=== PATIENT | male | born 1975 | race Caucasian/White ===

== ENCOUNTER 2016-07-15 17:37 | Inpatient (IN) ==
[2016-07-15 18:46] LABS: BUN/Creatinine Ratio 10 (6-26); Blood Urea Nitrogen 8 mg/dL (8-26); Calcium 9.4 mg/dL (8.6-10.8); Carbon Dioxide 24 mEq/L (19-29); Chloride 100 mEq/L (98-109); Glucose 132 mg/dL (70-99); Osmolality,Calculated 286 (280-300); Potassium 4.2 mEq/L (3.5-4.5); Sodium 138 mEq/L (136-145); eGFR For African Americans > 60 (> 60); eGFR For Non-African Americans > 60 (> 60)
[2016-07-15] MEDS ORDERED: Aspirin 81 MG TAB.CHEW PO ONE (18:46)
[2016-07-15] MEDS: Nitroglycerin 0.4 MG TAB.SUBL SL PRN ×3 (18:51→19:03)
[2016-07-15] MEDS ORDERED: *HR* LORazepam 2 MG/ML VIAL IVP ONE ×3 (19:05→22:53)
--- NOTE | 2016-07-15 19:06 | Emergency Department Note ---
Disposition Clinical Impression: NSTEMI (non-ST elevated myocardial infarction), Anxiety Chest pain Qualifiers: Chest pain type: unspecified Qualified Code(s): R07.9 - Chest pain, unspecified Disposition: Admitted As Inpatient Condition: Fair Referrals: David Mendes MD [Primary Care Provider] - Forms: ED Satisfaction Letter Chest Pain HPI - General Chief Complaint: ED Chest Pain Stated Complaint: Chest Pain Time Seen by Provider: 07/15/16 18:07 Source: patient Limitations: no limitations Vital Signs Reviewed: Yes Nursing Notes Reviewed: Yes - History of Present Illness HPI Narrative: 41-year-old male with history of diabetes and heart disease presents with abrupt onset of retrosternal chest discomfort that began while he was having an argument with his 1 prior to arrival. It is associated with mild shortness of breath similar to prior anxiety exacerbations. Unfortunately, the patient also notes that it is similar to his NH. He denies any exertional symptoms, radiation of symptoms, diaphoresis, vomiting. He has not had any symptoms recently prior to the argument. Pt complaint: chest pain Severity scale (1-10): 9 - Related Data Home Medications Medication Instructions Recorded Confirmed Lamotrigine [Lamictal] 100 mg PO BID 11/29/14 03/06/16 Oxycodone HCl/Acetaminophen 1 each PO TID 11/29/14 03/06/16 [Percocet 5-325 mg Tablet] Tizanidine [Zanaflex] 4 mg PO TID PRN 11/29/14 03/06/16 Metformin HCl [Glucophage] 1,000 mg PO BIDWM 07/21/15 03/06/16 Pantoprazole Sodium [Protonix] 40 mg PO DAILY 07/21/15 03/06/16 Quetiapine Fumarate [Seroquel] 25 mg PO HS 07/21/15 03/06/16 Previous Rx's Medication Instructions Recorded Aspirin 81 mg PO DAILY #30 tab.chew 10/18/15 Atorvastatin [Lipitor] 80 mg PO HS #30 tablet 10/18/15 Metoprolol XL (24 HR) Succ [Toprol 100 mg PO DAILY #30 tab.er.24h 10/18/15 Xl] Clopidogrel [Plavix] 75 mg PO DAILY #30 tablet 10/23/15 Allergies Allergy/AdvReac Type Severity Reaction Status Date / Time cephalexin [From Keflex] Allergy Redness of Verified 10/23/15 07:20 Skin ketorolac [From Toradol] AdvReac Itching Verified 10/23/15 07:20 All systems ED: reviewed and negative except as stated. Chest Pain PMH - Past Medical History Medical history: Reports: asthma, coronary artery disease, diabetes, hypertension, migraine, myocardial infarction, other Surgical history: Reports: angioplasty/stent, appendectomy Psychiatric history: Reports: bipolar - Social History Smoking Status: Current every day smoker Alcohol use: Reports: none Drug use: Reports: none Physical Exam - Head Head exam: atraumatic, normocephalic, normal inspection - Eye Eye exam: Present: normal appearance, PERRL, EOMI - ENT ENT exam: normal exam, normal oropharynx, mucous membranes moist - Neck Neck exam: Present: normal inspection, full ROM, trachea midline - Chest Pain is not reproducible on palpation of the chest wall. - Respiratory Respiratory exam: Clear to auscultation bilaterally without wheezes rales or rhonchi Cardiovascular Cardiovascular exam: Present: regular rate, normal rhythm, normal heart sounds - Abdominal Exam Abdominal exam: Present: soft, Non-Tender. Absent: tenderness, distention, guarding, rebound, rigidity - Extremities Exam Extremities exam: Present: normal inspection, full ROM - Expanded Lower Extremity Exam Hip/Pelvis exam: Present: normal inspection, full ROM - Back Exam Back exam: Present: normal inspection, full ROM. Absent: tenderness, CVA tenderness (R), CVA tenderness (L) - Neurological Exam Neurological exam: Present: alert, oriented X3, CN II-XII intact - Psychiatric Psychiatric exam: Present: normal affect, normal mood - Skin Skin exam: Present: warm, dry, intact, normal color - General Limitations: no limitations General appearance: alert, anxious Course - Reevaluation(s) Reevaluation #1: Troponin is negative. Given the patient's abrupt onset of symptoms just prior to arrival I did recommend that he stay. He states that he feels this is likely his anxiety and would like to be treated for that. He says that he would not like to be admitted unless he is actually having a massive heart attack. I discussed this with oncoming physician Dr. Weeks who said that he would be willing to consider treating the anxiety and repeat troponin prior to disposition. We we will give the patient Ativan and reassess him. Initial EKG showed normal sinus rhythm at 95 with left axis deviation. No definite ST elevation or depression. No T-wave inversions there are prominent T waves in the precordial leads. These are changed when compared with 12/11/2015. Repeat EKG here shows normal sinus rhythm at 88. Again with prominent precordial T waves. No ST elevation or depression. Time: 19:11 - Consultations Consultation #1: The hospitalist, Dr. Kaba, was consulted and accepted admission of the patient. Time: 22:10 Vital Signs Temperature 97.6 F 07/15/16 17:39 Pulse Rate 99 07/15/16 17:39 Respiratory Rate 22 07/15/16 17:39 Blood Pressure 210/86 07/15/16 17:39 O2 Sat by Pulse Oximetry 97 07/15/16 17:39 Temperature 97.6 F 07/15/16 17:39 Pulse Rate 78 07/15/16 22:10 Respiratory Rate 20 07/15/16 22:10 Blood Pressure 162/93 07/15/16 22:10 O2 Sat by Pulse Oximetry 97 07/15/16 22:10 Oxygen Delivery Oxygen Delivery Room Air Chest Pain - Medical Records Medical records reviewed: Yes I reviewed the patient's medical records. - Lab Data Lab results reviewed: Yes I reviewed the patient's lab results. Result diagrams: 07/15/16 18:21 Lab Results 07/15/16 07/15/16 07/15/16 Range/Units 18:21 18:21 21:23 Sodium 138 (136-145) mEq/L Potassium 4.2 (3.5-4.5) mEq/L Chloride 100 (98-109) mEq/L Carbon Dioxide 24 (19-29) mEq/L BUN 8 (8-26) mg/dL Creatinine 0.79 (0.72-1.25) mg/dL Est GFR ( Amer) > 60 (> 60) Est GFR (Non-Af Amer) > 60 (> 60) BUN/Creatinine Ratio 10 (6-26) Glucose 132 H (70-99) mg/dL Calculated Osmolality 286 (280-300) Calcium 9.4 (8.6-10.8) mg/dL Troponin I 0.01 0.14 H* (0-0.03) ng/mL - Radiology Data Radiology results reviewed: Yes I reviewed the patient's radiology results. Chest X-Ray 07/15/16 18:07 IMPRESSION: No evidence for acute cardiopulmonary process. D/ / Monty Osborn MD / Monty Osborn MD Interpreting Provider: Monty Osborn MD - EKG Data EKG attestation: Yes I reviewed and interpreted this EKG. EKG results narrative: EKG shows a normal sinus rhythm with a heart rate of 88, possible anterior NH of indeterminate age, no acute ischemic changes. EKG shows normal: sinus rhythm Critical Care Time Critical Care Time: Yes Total Critical Care Time: 45 Attestation: Critical care performed: Time is exclusive of separately billable procedures. Time includes: direct patient care, patient reassessment, coordination of patient care, interpretation of data (laboratory data, radiology data, and respiratory data), review of patient's medical records, medical consultation and documentation of patient care. Procedures included in critical care time: Procedures excluded from critical care time: Attestation Statement - Attestation Attestation: I, Noe Weeks MD, personally evaluated this patient and discussed their management with the resident physician. I reviewed the resident's note and agree with the documented findings, medical decision making, and plan of care. This patient was signed out at shift change from Dr. Novak. Please refer to his note for complete details of history and physical examination. Patient is a 41-year-old morbidly obese male who presents complaining of some chest pain which started about an hour prior to arrival while he was having an argument with his . He states he has been under a lot of stress and pressure for the past 2 months and having marital problems and financial problems. Patient states that he has a history of anxiety and panic attacks and that this pressure and tightness through his mid chest and both upper arms feels similar to when he has panic attacks. However he also had an NH last October and had a stent placed and states this feels similar to the chest pain at that time also. No shortness of breath or palpitations. No diaphoresis. No nausea or vomiting. On examination patient is a well-developed morbidly obese male in no acute distress. He is alert and oriented 3. There is no cyanosis or diaphoresis. Does appear very anxious. Chest is nontender to palpation. Breath sounds are clear and equal bilaterally. Heart regular rate and rhythm. Abdomen soft and nontender with normal bowel sounds. EKG shows a sinus rhythm with a rate of 88. Possible anterior NH of indeterminate age. No STEMI. Labs reviewed. Initial troponin was 0.01 however a repeat troponin at 3 hours increased to 0.14. Chest x-ray negative. Patient did receive aspirin on arrival. He also received nitroglycerin with no improvement in his chest discomfort. He received Ativan which did seem to relieve his chest discomfort. The hospitalist, Dr. Kaba, was consulted and accepted admission of the patient.
[2016-07-15] MEDS ORDERED: Nitroglycerin 1 INCH/GM PACKET TP ONE (22:04)
[2016-07-15] MEDS ORDERED: *HR* Morphine 2 MG/ML SYRINGE IVP ONE ×2 (22:15→22:53)
[2016-07-16] MEDS ORDERED: *HR* Heparin 5,000 UNIT/ML VIAL IVP ONE (00:16)
[2016-07-16] MEDS ORDERED: *HR* Heparin 5,000 UNIT/ML VIAL IVP PRN ×2 (00:16)
[2016-07-16] MEDS ORDERED: Naloxone 0.4 MG/ML INJ IVP PRN (00:17)
[2016-07-16] MEDS ORDERED: tiZANidine 4 MG TABLET PO PRN (00:20)
[2016-07-16] MEDS ORDERED: Dextrose Gel 15 GM PO PRN ×2 (00:21)
[2016-07-16] MEDS ORDERED: *HR* Dextrose 50 % in Water (Syg) 50 ML SYRINGE IVP PRN (00:21)
[2016-07-16] MEDS ORDERED: D5% in Water 1,000 ML IVC PRN (00:21)
--- NOTE | 2016-07-16 00:24 | Internal Med History&Physical ---
Date of Encounter: 07/16/16 Time of Encounter: 00:22 Assessment and Plan (1) NSTEMI (non-ST elevated myocardial infarction) Current visit: Yes Status: Acute patient with significant risk factors for CAD and a history of CAD s/p ADRIANO placement in the mid LAD in 10/2015 for MSTEMI comes in with chest pain and elevated troponins preceded by 3 days of stuttering chest pain, we will cycle troponin, check lipi profile and A1c, telemonitor, start on heparin, drip per ACS protocol, stat aspirin, plavix, lipitor, continue metoprolol-unclear why he is not on an ADIEL-I- will continue nitro drip to titrate to chest pain, cardiology to weigh in, NPO except medications and ice chips (2) DM (diabetes mellitus), type 2 Current visit: Yes Status: Chronic Hx of type 2 DM on metformin at home, we will hold that due to possible contrast enhanced investigation and do SSI insulin, FS Q6H whilst fasting Qualifiers: Diabetes mellitus complication status: with neurologic complications Diabetes mellitus complication detail: with polyneuropathy Diabetes mellitus half-way insulin use: without half-way use Qualified Code(s): E11.42 - Type 2 diabetes mellitus with diabetic polyneuropathy (3) Morbid obesity with BMI of 50.0-59.9, adult Current visit: Yes Status: Chronic will need counseling, will get nutrition consult (4) Bipolar 1 disorder, manic, mild Current visit: Yes Status: Chronic will continue home medications (5) Hypertension Current visit: Yes Status: Chronic will continue metoprolol and monitor BP Qualifiers: Hypertension type: essential hypertension Qualified Code(s): I10 - Essential (primary) hypertension (6) Anxiety Current visit: Yes Status: Chronic will continue home medications Internal Medicine - H&P: HPI Chief complaint: Chest pain Admitted From: Emergency Dept Plans for Post Hospital Care: Home History of present illness: Mr. Evangelista is a 41 year old male with a history of DM/HTN/Morbid obesity/CAD s/ p ADRIANO placement in mid LAD in 10/2015 was brought in last night for chest pain. He was in his usual state of health until he began to have an argument with his . During this argument he started having chest pain that was retrosternal in location, was 9/10 in severity, radiated to his left arm and between his shoulder blades. It was constant since it began but over the past 3 days he has had intermittent chest pain those of which resolved with nitro. This pain that brought him in however did not respond to nitro. It was associated with lightheadedness, diaphoresis, nausea and vomiting, feeling of apprehension, dyspnea and dyspnea on exertion during the episode. In the ER his EKG was unchanged, his initial troponin was unremarkable but repeat troponin abut 3 hours later was elevated and he was still having chest pain so he is being admitted as NSTEMI for cardiology input. Past Med Surg Social Fam HX - Past Medical History Medical history: asthma, coronary artery disease, diabetes, hypertension, migraine, myocardial infarction, other Psychiatric history: anxiety, bipolar - Past Surgical History Surgical History: angioplasty/stent, appendectomy - Social History Smoking Status: Current every day smoker Packs per day: >1ppd for >23 years Smokeless Tobacco Status: No Alcohol use: none Drug use: none Current living situation: Home - Independent Activity Level: Independent ambulation Additional social history: he is and lives at home with - Family History Father Living Status: Still Living Hx Family Cardiac Disorders: Yes Hx Family Respiratory Disorders: No Hx Family Cancer: No Hx Family GI Disorders: No Hx Family Endocrine Disorder: Yes Hx Family Neuromuscular Disorders: No Hx Family Neurologic Disorders: No Hx Family HEENT Disorders: No Hx Family Autoimmune Disorders: No Mother Hx Family Cardiac Disorders: Yes (HTN, arrythmias.) Hx Family Endocrine Disorder: Yes (DM(II)) - Additional Family History Additional family history: father had an [place] in his late 30's, mother has heart failure, DM and reportedly has coronary stents Internal Medicine - H&P: Meds Lamotrigine [Lamictal] 100 mg PO BID 11/29/14 [History] Oxycodone HCl/Acetaminophen [Percocet 5-325 mg Tablet] 1 each PO TID 11/29/14 [ History] Tizanidine [Zanaflex] 4 mg PO TID PRN 11/29/14 [History] Metformin HCl [Glucophage] 1,000 mg PO BIDWM 07/21/15 [History] Aspirin 81 mg PO DAILY #30 tab.chew 10/18/15 [Rx] Clopidogrel [Plavix] 75 mg PO DAILY #30 tablet 10/23/15 [Rx] Atorvastatin Calcium [Lipitor] 80 mg PO HS 07/15/16 [History] Doxepin HCl [Doxepin HCl] 100 mg PO HS 07/15/16 [History] Metoprolol Succinate [Metoprolol Succinate] 100 mg PO DAILY 07/15/16 [History] OXcarbazepine [Oxcarbazepine] 300 mg PO BID 07/15/16 [History] Allergies cephalexin [From Keflex] Allergy (Verified 10/23/15 07:20) Redness of Skin ketorolac [From Toradol] Adverse Reaction (Verified 10/23/15 07:20) Itching All Systems PM: A 10-system review of systems was performed and is negative for pertinent findings except as documented above in the HPI. - Constitutional Vitals: Temp Pulse Resp BP Pulse Ox 98.1 F 62 16 157/96 95 07/15/16 23:42 07/15/16 23:42 07/15/16 23:42 07/15/16 23:42 07/15/16 23:42 PHYSICAL EXAMINATION: GENERAL: Adult male, obese looking, lying in bed looking uncomfortable and in pain, Alert, HEENT: NC/AT, EOMI, PERRLA, anicteric sclera, normal conjunctiva, supple, clear nares, moist mucous membranes, RESP: lungs are clear to auscultation bilaterally, good AE bilaterally, No crackles or wheeze CARDIO: Normal hearts sounds; S1 and 2, RRR with no murmurs, no JVD, no ankle edema GI: Soft, full, no tenderness, no organomegaly felt, normal bowel sounds heard MUSCULOSKELETAL: grossly normal movements bilaterally, NEUROLOGIC: CN 2-12 intact grossly. No motor/sensory deficit appreciated, PSYCHIATRY: AAO x 3. Mood is fair, SKIN: no skin rash or ulcers noted Internal Med - H&P Results - Labs CBC & Chem 7: 07/16/16 00:33 07/16/16 03:04 - EKG Data -: EKG Interpreted by Myself - Diagnostic Studies Chest x-ray Status: image reviewed by me
[2016-07-16] MEDS ORDERED: Nitroglycerin 25 MG/250 ML INFUS..BTL IVC SCH (00:30)
[2016-07-16 00:55] LABS: Hematocrit 45.3 % (37.5-50.1); Hemoglobin 14.9 g/dL (12.9-16.9); Mean Corpuscular HGB Conc 32.9 g/dL (31.6-35.5); Mean Corpuscular Hemoglobin 29.7 pg (28.0-33.3); Mean Corpuscular Volume 90.4 fL (83.0-100.0); Mean Platelet Volume 10.3 fL (9.4-12.4); Platelet Count 258 K/mcL (140-400); Red Blood Count 5.01 M/mcL (4.19-5.50)
[2016-07-16 01:12] LABS: INR 1.2; Prothrombin Time 12.6 Seconds (9.4-12.1)
[2016-07-16 01:14] LABS: Activated Partial Thrombo Time 32.3 Seconds (26.0-36.0)
[2016-07-16] MEDS: Heparin 25,000 UNIT/500 ML D5W 25,000 UNIT/500 ML MLS IVC SCH ×3 (01:17→12:36)
[2016-07-16] MEDS: *HR* Morphine 2 MG/ML SYRINGE IVP PRN ×2 (01:30→11:31)
[2016-07-16 03:32] LABS: Hemoglobin A1C 6.5 %
[2016-07-16 03:40] LABS: BUN/Creatinine Ratio 11 (6-26); Blood Urea Nitrogen 8 mg/dL (8-26); Carbon Dioxide 27 mEq/L (19-29); Chloride 100 mEq/L (98-109); Chol/HDL Ratio 6.8 (0-4.9); Cholesterol 197 mg/dL (< 200); Glucose 124 mg/dL (70-99); HDL Cholesterol 29 mg/dL (40-59); LDL Cholesterol,Calculated 144 mg/dL (0-99); Magnesium 1.5 mg/dL (1.6-2.6); Osmolality,Calculated 284 (280-300); Phosphorous 4.4 mg/dL (2.3-4.7); Potassium 3.9 mEq/L (3.5-4.5); Sodium 137 mEq/L (136-145); Triglycerides 118 mg/dL (< 150); eGFR For African Americans > 60 (> 60); eGFR For Non-African Americans > 60 (> 60)
[2016-07-16] MEDS ORDERED: Magnesium Sulfate 2 GM in D5% in Water 100 ML IVPB ONE (04:02)
[2016-07-16] MEDS: Insulin LISPRO 300 UNITS/3 ML VIAL SQ SCH ×2 (05:45→11:25)
[2016-07-16] MEDS: lamoTRIgine 100 MG TABLET PO SCH ×2 (08:26→20:12)
[2016-07-16] MEDS: OXcarbazepine 150 MG TABLET PO SCH ×2 (08:26→20:11)
[2016-07-16] MEDS: Aspirin 81 MG TAB.CHEW PO SCH (08:26)
[2016-07-16] MEDS ORDERED: Metoprolol 100 MG TABLET PO SCH (09:00)
--- NOTE | 2016-07-16 09:17 | Cardiology Consult Note ---
Date of Encounter: 07/16/16 Time of Encounter: 07:45 Assessment and Plan (1) NSTEMI (non-ST elevated myocardial infarction) Current Visit: Yes Status: Acute Troponin 0.01, 0.14, 1.71. Hx of DC with PCI to AD in October 2016; states he missed doses of DAPT 4 days ago. Pain free upon exam now. Given 324 mg asa, 300 mg Plavix, and started on IV heparin gtt in ED. Continue heparin and ntg gtt--titrate ntg gtt to keep chest pain free. Patient is extremely drowsy during exam and unable to hold conversation, likely secondary to multiple doses of IV ativan given yesterday. Recommend LHC with possible PCI today. Check echocardiogram today. Continue asa, statin, plavix, and betablocker. (2) Hypertension Current Visit: Yes Status: Chronic Severely elevated upon admission, SBP >200. Continues to be uncontrolled despite NTG gtt. Will add ACEi. Qualifiers: Hypertension type: essential hypertension Qualified Code(s): I10 - Essential (primary) hypertension (3) Tobacco abuse Current Visit: Yes Status: Chronic >1ppd x23 years. Smoking cessation counseling discussed. Discussion w patient/family: The assessment and plan as outlined above was discussed with the patient and/or family members who expressed understanding and agreement. All questions were answered. Thank you for involving us in the care of your patient. Please call with any questions. The patient will be discussed and reviewed with Dr. Zuri López; changes to be made accordingly. History of Present Illness Consult date: 07/16/16 Requesting physician: Ankur Kaba Consult reason: NSTEMI Chief complaint: Chest pain History of present illness: Mr. Evangelista is a 41 year old male with PMH significant for CAD s/p PCI (10/2015), HLD, HTN, DMII, obesity, and tobacco use who presents to the ED with a 3-day history of worsening chest pain. Pain is described as pressure with radiation to back between shoulder blades. Discomfort worsened with exertion and improved with rest and NTG tabs. Associated symptoms include nausea and fatigue. His reports he initially thought he had a stomach virus. Patient states he missed a dose of plavix and asa 4 days ago; please note he is extremely drowsy upon exam. Per ED notes, patient was given several doses of IV ativan due to anxiety regarding argument with prior to admission. Recent CV testing: Limited TTE 12/11/15: EF 60%, normal wall motion TTE 10/18/15: EF 45-50%, mid anterior and apical wall hypokinesis LHC 10/17/15: severe single vessel CAD s/p successful PTCA/ADRIANO to mLAD stenosis; otherwise no significant CAD. Past Med Surg Social Fam HX - Past Medical History Attestation: Yes The following information was validated with the patient. Source: patient, obtained from family Medical history: asthma, coronary artery disease, diabetes, hyperlipidemia, migraine, myocardial infarction Psychiatric history: anxiety, bipolar - Past Surgical History Surgical History: angioplasty/stent, appendectomy - Social History Smoking Status: Current every day smoker Packs per day: >1ppd for >23 years Smokeless Tobacco Status: No Alcohol use: none Drug use: none - Family History Father Living Status: Still Living Hx Family Cardiac Disorders: Yes Hx Family Respiratory Disorders: No Hx Family Cancer: No Hx Family GI Disorders: No Hx Family Endocrine Disorder: Yes Hx Family Neuromuscular Disorders: No Hx Family Neurologic Disorders: No Hx Family HEENT Disorders: No Hx Family Autoimmune Disorders: No Mother Hx Family Cardiac Disorders: Yes (HTN, arrythmias.) Hx Family Endocrine Disorder: Yes (DM(II)) Medications and Allergies Lamotrigine [Lamictal] 100 mg PO BID 11/29/14 [History] Oxycodone HCl/Acetaminophen [Percocet 5-325 mg Tablet] 1 each PO TID 11/29/14 [ History] Tizanidine [Zanaflex] 4 mg PO TID PRN 11/29/14 [History] Metformin HCl [Glucophage] 1,000 mg PO BIDWM 07/21/15 [History] Aspirin 81 mg PO DAILY #30 tab.chew 10/18/15 [Rx] Clopidogrel [Plavix] 75 mg PO DAILY #30 tablet 10/23/15 [Rx] Atorvastatin Calcium [Lipitor] 80 mg PO HS 07/15/16 [History] Doxepin HCl [Doxepin HCl] 100 mg PO HS 07/15/16 [History] Metoprolol Succinate [Metoprolol Succinate] 100 mg PO DAILY 07/15/16 [History] OXcarbazepine [Oxcarbazepine] 300 mg PO BID 07/15/16 [History] Allergies cephalexin [From Keflex] Allergy (Verified 10/23/15 07:20) Redness of Skin ketorolac [From Toradol] Adverse Reaction (Verified 10/23/15 07:20) Itching All Systems Review: A 10-system review of systems was performed and is negative for pertinent findings except as documented above in the HPI. - Cardiovascular Cardiovascular: as per HPI Physical Examination Vital Signs, Last 4 Hours Temp Pulse Resp BP Pulse Ox 07/16/16 08:31 84 12 170/102 07/16/16 06:56 97.6 F 88 18 154/103 94 07/16/16 05:30 90 16 157/88 95 General: Conversant, Other (morbidly obese, drowsy upon exam. ) Cardiac: Reg Rate and Rhythm, Normal S1 and S2 Lungs: Normal Breath Sounds Neuro: Other (Extremely drowsy upon exam. ) Abdomen: Soft Skin: No rashes noted on visualized skin Musculoskeletal: No Chest Wall Tenderness Extremities: No Edema, Normal Pulses Results 07/16/16 00:33 07/16/16 03:04 Lab Results 07/16/16 07/16/16 07/16/16 00:33 00:33 03:04 WBC 16.4 H Hgb 14.9 Hct 45.3 Plt Count 258 INR 1.2 APTT 32.3 Sodium Potassium Chloride Carbon Dioxide BUN Creatinine Glucose Calcium Magnesium Troponin I 1.71 H* 07/16/16 07/16/16 07/16/16 03:04 08:13 08:13 WBC Hgb Hct Plt Count INR APTT 70.3 H D Sodium 137 Potassium 3.9 Chloride 100 Carbon Dioxide 27 BUN 8 Creatinine 0.73 Glucose 124 H Calcium 9.0 Magnesium 1.5 L Troponin I 4.63 H* Active Medications Aspirin (Aspirin) 81 mg PO DAILY [facility] Stop: 01/15/17 09:01 Last Admin: 07/16/16 08:26 Dose: 81 mg Atorvastatin Calcium (Lipitor) 80 mg PO HS [facility] Stop: 01/15/17 00:31 Last Admin: 07/16/16 01:05 Dose: 80 mg Clopidogrel Bisulfate (Plavix) 75 mg PO DAILY [facility] Stop: 01/15/17 09:01 Last Admin: 07/16/16 08:26 Dose: 75 mg Dextrose/Water (Dextrose 50% (Syg)) 25 ml IVP AD PRN PRN Reason: Hypoglycemia Stop: 01/15/17 00:22 Doxepin HCl (Sinequan) 100 mg PO HS [facility] Stop: 01/15/17 00:31 Last Admin: 07/16/16 01:04 Dose: 100 mg Glucagon (Glucagen) 1 mg IM ONCE PRN PRN Reason: Hypoglycemia Stop: 01/15/17 00:22 Glucose (Gluctose) 15 gm PO ONCE PRN PRN Reason: Hypoglycemia Stop: 01/15/17 00:22 Glucose (Gluctose) 30 gm PO ONCE PRN PRN Reason: Hypoglycemia Stop: 01/15/17 00:22 Heparin Sodium (Porcine) (Heparin) 4,000 unit IVP Q6HR PRN PRN Reason: SEE COMMENTS Stop: 01/15/17 00:17 Heparin Sodium (Porcine) (Heparin) 2,000 unit IVP Q6H PRN PRN Reason: SEE COMMENTS Stop: 01/15/17 00:17 Heparin Sodium/Dextrose (Heparin 25,000 Unit/500 Ml D5w) 25,000 unit in 500 mls @ 44.016 mls/hr IVC .[id number] [facility]AVIO; 12 UNIT/KG/HR PRN Reason: Protocol Stop: 01/15/17 00:31 Last Titration: 07/16/16 08:55 Dose: 12 unit/kg/hr, 44.016 mls/hr Nitroglycerin (Nitroglycerin) 25 mg in 250 mls @ 3 mls/hr IVC .Q24H [facility] PRN Reason: 5 MCG/MIN Stop: 01/15/17 00:31 Last Infusion: 07/16/16 08:30 Dose: 20 mcg/min, 12 mls/hr Dextrose (Dextrose 5%) 1,000 mls @ 100 mls/hr IVC .Q10H PRN PRN Reason: HYPOGLYCEMIA Stop: 01/15/17 00:22 Insulin Human Lispro (Humalog) 0 units SQ Q6HR [facility] PRN Reason: Protocol Stop: 01/15/17 06:01 Last Admin: 07/16/16 05:45 Dose: Not Given Lamotrigine (Lamictal) 100 mg PO BID [facility] Stop: 01/15/17 09:01 Last Admin: 07/16/16 08:26 Dose: 100 mg Metoprolol Tartrate (Lopressor) 100 mg PO DAILY [facility] Stop: 01/15/17 09:01 Last Admin: 07/16/16 08:26 Dose: 100 mg Morphine Sulfate (Morphine Sulfate) 2 mg IVP Q4HR PRN PRN Reason: Severe Pain (7-10) Stop: 01/15/17 00:18 Last Admin: 07/16/16 01:30 Dose: 2 mg Naloxone HCl (Narcan) 0.4 mg IVP Q2MIN PRN PRN Reason: Opioid Reversal Stop: 01/15/17 00:18 Nitroglycerin (Nitroglycerin) 0.4 mg SL Q5MIN PRN PRN Reason: Chest Pain Stop: 01/14/17 18:47 Last Admin: 07/15/16 19:03 Dose: 0.4 mg Oxcarbazepine (Trileptal) 300 mg PO BID [facility] Stop: 01/15/17 09:01 Last Admin: 07/16/16 08:26 Dose: 300 mg Tizanidine HCl (Zanaflex) 4 mg PO TID PRN PRN Reason: Muscle Spasm Stop: 01/15/17 00:21 - Imaging and Cardiology Echo: report reviewed Cardiac cath: report reviewed Other Results: 12 hour tele: avg HR=80 SR. Few PVCs. No significant event noted. - EKG Interpretation EKG results cardiology: personally reviewed Consult Discharge Plan - Plan Referrals: David Mendes MD [Primary Care Provider] -
[2016-07-16] MEDS: amLODIPine 5 MG TABLET PO SCH (10:41)
--- NOTE | 2016-07-16 11:05 | Pre-Sedation Evaluation ---
Pre-sedation evaluation - Pre-sedation checklist Date of procedure: 07/16/16 Procedure: Heart Cath Recent Vitals: Last Vital Signs Temp 97.6 F 07/16/16 10:59 Pulse 98 07/16/16 10:59 Resp 16 07/16/16 10:59 BP 148/93 07/16/16 10:59 Pulse Ox 95 07/16/16 10:59 H&P (including ROS) documented in medical record: Yes Previous reaction to sedatives/anesthetics: No Dietary Status: NPO after Midnight Airway Assessment: Patient can open mouth completely, TMJ function normal, Micrognathia (under-bite, receding chin) absent, Neck with adequate range of motion Dentition: No loose teeth or bridges Possible difficult airway: Yes If Yes;: History of Obstructive Sleep Apnea, Morbid obesity, Enlarged neck circumference, short neck ASA Classification *see protocol: CLASS II-Mild systemic disease Plan of Care: Pt appropriate candidate for procedure/moderate/conscious sedation , Risks/benefits of procedure/sedation discussed w/ patient/family
--- NOTE | 2016-07-16 11:46 | Internal Med Progress Note ---
Date of Encounter: 07/16/16 Time of Encounter: 11:44 - Assessment and plan (1) NSTEMI (non-ST elevated myocardial infarction) Current Visit: Yes Status: Acute Assessment and plan: cotinue heparin drip and nitro drip. will go for cath today. missed plavix for a few weeks. d/w patient and his . (2) Tobacco abuse Current Visit: Yes Status: Chronic (3) DM (diabetes mellitus), type 2 Current Visit: Yes Status: Chronic Qualifiers: Diabetes mellitus complication status: with neurologic complications Diabetes mellitus complication detail: with polyneuropathy Diabetes mellitus watermaster insulin use: without [facility] use Qualified Code(s): E11.42 - Type 2 diabetes mellitus with diabetic polyneuropathy (4) Morbid obesity with BMI of 50.0-59.9, adult Current Visit: Yes Status: Chronic (5) Bipolar 1 disorder, manic, mild Current Visit: Yes Status: Chronic (6) Diabetes mellitus Current Visit: No Status: Chronic Qualifiers: Diabetes mellitus type: type 2 Diabetes mellitus complication status: with unspecified complications Diabetes mellitus [facility] insulin use: without [facility] use Qualified Code(s): E11.8 - Type 2 diabetes mellitus with unspecified complications (7) Hypertension Current Visit: Yes Status: Chronic Qualifiers: Hypertension type: essential hypertension Qualified Code(s): I10 - Essential (primary) hypertension - Subjective Interval history: seen and examined, on heparin drip and itro drip. complaining of chest pain. missed plavix for a few weeks. - Constitutional Vitals: Temp Pulse Resp BP Pulse Ox 97.6 F 77 16 149/86 95 07/16/16 10:59 07/16/16 11:33 07/16/16 11:33 07/16/16 11:33 07/16/16 11:06 General appearance: Present: cooperative, A&O X 3, morbidly obese - Head Head exam: Present: atraumatic, normocephalic - Eye Eye exam: Present: PERRL, conjuntiva pink, sclera anicteric Pupils: Present: PERRL - Neck Neck exam general surgery: Present: supple, trachea midline. Absent: lymphadenopathy - Respiratory Respiratory exam: Present: CTAB. Absent: accessory muscle use, rales, rhonchi, wheezes - Cardiovascular Cardiovascular exam: Present: RRR, +S1, +S2. Absent: diastolic murmur, gallop, rubs, systolic murmur - GI/Abdominal GI/Abdominal exam: Present: normal bowel sounds, soft, no peritoneal signs. Absent: distended, tenderness - Extremities Exam Extremities exam: Present: warm, radial pulses palpable and symetrical. Absent : calf tenderness, cyanotic, pedal edema - Neurological Exam Neurological exam: Present: CN II-XII intact, oriented X3, no focal deficits. Absent: pronater drift, facial droop, speech deficit - Skin Skin exam: Present: dry, intact Internal Medicine: Result - Labs CBC & Chem 7: 07/16/16 00:33 07/16/16 03:04 Labs: Short CBC 07/16/16 Range/Units 00:33 WBC 16.4 H (4.3-11.1) K/mcL Hgb 14.9 (12.9-16.9) g/dL Hct 45.3 (37.5-50.1) % Plt Count 258 (140-400) K/mcL BMP 07/16/16 03:04 Sodium 137 Potassium 3.9 Chloride 100 Carbon Dioxide 27 BUN 8 Creatinine 0.73 Glucose 124 H Calcium 9.0 Cardiac Enzymes 07/16/16 07/16/16 Range/Units 03:04 08:13 Troponin I 1.71 H* 4.63 H* (0-0.03) ng/mL - ABG Interpretation ABG results: PT/INR, D-dimer PT 12.6 Seconds (9.4-12.1) H 07/16/16 00:33 Consult Discharge Plan - Plan Referrals: David Mendes MD [Primary Care Provider] -
[2016-07-16] MEDS ORDERED: *HR* Midazolam HCl 2 MG/2 ML VIAL ONE ×2 (12:07→12:46)
[2016-07-16] MEDS ORDERED: Verapamil 5 MG/2 ML VIAL ONE (12:07)
[2016-07-16] MEDS ORDERED: 0.9 % Sodium Chloride 1,000 ML ONE ×2 (12:07→12:36)
[2016-07-16] MEDS ORDERED: *HR* Heparin 10,000 UNIT/10 ML VIAL ONE (12:07)
[2016-07-16] MEDS ORDERED: *HR* FentaNYL (PF) 100 MCG/2 ML VIAL ONE (12:07)
[2016-07-16] MEDS ORDERED: Heparin 1,000 UNITS/500 mL NS 500 ML ONE (12:07)
[2016-07-16] MEDS ORDERED: Nitroglycerin 1,000 MCG/10 ML VIAL IV ONE (12:08)
[2016-07-16] MEDS ORDERED: Ondansetron 4 MG/2 ML VIAL IVP PRN (13:48)
--- NOTE | 2016-07-16 13:49 | Invasive Diagnostic Lab Proc ---
Name: Arjun Evangelista Date of Study: 07/16/2016 Date: 1975 Ht: 72.0in Medical Record#: [id number] Age: 41 Wt: 403.89lb Gender: Male BSA: 2.87 Order #: [id number] BMI: 54.76 Physicians Procedure Physician: Zuri López MD, [facility] Referring MD: Referring MD: Staff Name Position Time In TuckerEnriqueBeth RN Monitor 12:45 PM April Fernandez RN Dowel Maker 12:46 PM Saroj Barry RN 12:46 PM Indications Indication Non-Stemi Procedures Performed Procedure L HRT ARTERY/VENTRICLE ANGIO PRQ CARD REVASC CT 1 VSL Pre-Procedure Checklist Informed consent is complete signed and on chart. H\\T\\P is on chart. ID band is on and ID verified with patient. Patient NPO for procedure The procedure was described for the patient and questions were answered. ECG is on chart. Plan of Care Patient will tolerate the procedure without complications. Adequate level of comfort will be maintained. Hemodynamics will remain stable Patient will recover from procedure without complications. Respiratory function will be maintained. Cardiac rhythm will remain stable. Patient temperature will be maintained. Patient and/or family have verbalized understanding of the procedure. Patient Education Chief Complaint/Reason for Test: Cardiac Cath Developmental Category: Adult (18-64 years) Developmentally Appropriate for Age: Yes Learning Barriers: None Education Needs: Procedure Education Method: Verbal Information Taught: Cardiac Cath Educational Evaluation: Able to repeat information Intravenous Access Time IV Size Location DC'd Fluid/Drip Rate Units RN 12:43 PM 18g 1 /" Patent On Arrival Lt Antecubital 0.9NaCl 25 ml/hr April Fernandez RN 12:43 PM Lt Antecubital Nitroglycerin 20 mcg/min April Fernandez RN Allergies cephalexin ketorolac PEROXIDE Vital Signs Time BP (mmHg) HR (bpm) O2 Sat. RR (bpm) LOC 12:49 PM / % 5 = Fully awake and oriented or at pre-proc level 01:01 PM / % 5 = Fully awake and oriented or at pre-proc level 01:01 PM / % 5 = Fully awake and oriented or at pre-proc level 01:16 PM / % 5 = Fully awake and oriented or at pre-proc level 12:43 PM 176 / 110 72 98 % 14 12:48 PM 179 / 109 75 98 % 21 12:53 PM 174 / 111 73 97 % 22 12:58 PM 165 / 109 73 98 % 22 01:03 PM 161 / 107 73 96 % 18 01:08 PM 168 / 101 72 98 % 21 01:14 PM 168 / 112 71 98 % 17 01:18 PM 171 / 101 72 97 % 19 01:23 PM 166 / 96 73 97 % 20 01:28 PM 163 / 103 72 97 % 13 01:33 PM 148 / 70 68 98 % 23 01:19 PM / % 5 = Fully awake and oriented or at pre-proc level Procedural Medications Time Medication Dose Units Method Given By 12:44 PM Oxygen 2 L/min nasal cannula Beth Ceballos RN 12:44 PM Versed 2 mg Intravenous Beth Ceballos RN 12:44 PM Fentanyl 50 mcg Intravenous Beth Ceballos RN 12:52 PM Benadryl 25 mg Intravenous April Fernandez RN 12:53 PM Lidocaine 2% 0.5 ml Subcutaneous Zuri López MD, FACC 12:57 PM Versed 1 mg Intravenous April Fernandez RN 12:57 PM Fentanyl 25 mcg Intravenous April Fernandez RN 12:59 PM Nitroglycerin 200 mcg Intraarterial 12:59 PM Verapamil 2.5 mg Intraarterial Zuri López MD, FACC 01:01 PM Benadryl 25 mg Intravenous April Fernandez RN 01:10 PM Heparin 4000 units Intravenous April Fernandez RN 01:11 PM Versed 1 mg Intravenous April Fernandez RN 01:11 PM Fentanyl 25 mcg Intravenous April Fernandez RN 01:21 PM Nitroglycerin 200 mcg Intracoronary Zuri López MD, FACC 01:28 PM Plavix 600 mg Orally April Fernandez RN ASA Classification: CLASS II- Mild systemic disease (i.e. well-controlled diabetes, hypertension, asthma, cigarette smoking) Hortencia Score Preprocedure Postprocedure Activity 2- Moves 4 extremities sustained head lift Activity 2- Moves 4 extremities sustained head lift Circulation 2- SBP +/= 20 points of pre-anesthetic level Circulation 2- SBP +/= 20 points of pre-anesthetic level Consciousness 2- Awake and alert oriented x 3 Consciousness 2- Awake and alert oriented x 3 O2 Saturation 2- Able to maintain O2 satruation of 92% on room air O2 Saturation 2- Able to maintain O2 satruation of 92% on room air Respiratory 2- Able to deep breathe and cough well Respiratory 2- Able to deep breathe and cough well Total Score 10 Total Score 10 Contrast Agent: Isovue Diagnostic Contrast: 141 ml Total Contrast: 141 ml Fluoro Dose: 1200 mGy Activated Clotting Time Time Seconds to Clot 01:10 PM 98 Procedure Log Time Note Enter By 12:03 PM Case Start 12:03 PM CathStat 12:36 PM Pt arrived to director labor standards 2 at 12:36 [email or web address] 12:42 PM Vitals capture started with the following parameters, Patient=Adult, Interval=5 min, Initial Tgwuspkv=117 mmHg, Deflation Rate=5 mmHg, Cuff placed on Left Arm 12:43 PM HR=72 bpm, WHFT=275/110 mmhg, SpO2=98.0 %, Resp=14 B/min, Comment=SR 12:44 PM Time: 12:44 Versed 2 mg Intravenous Given by Beth Ceballos RN [facility] 12:44 PM ASA Class CLASS II- Mild systemic disease (i.e. well-controlled diabetes, hypertension, asthma, cigarette smoking) [email or web address] 12:44 PM Meet and greet completed [email or web address] 12:44 PM Sign in performed according to hospital policy. [email or web address] 12:44 PM Procedure start 12:44 [email or web address] 12:44 PM heparin drip turned off on the unit prior to arrival to procedure lab [email or web address] 12:44 PM Time: 12:44 Fentanyl 50 mcg Intravenous Given by Beth Ceballos RN [facility] 12:44 PM Case Delayed No [email or web address] 12:44 PM Time: 12:44 Oxygen on at 2 L/min per nasal cannula by Beth Ceballos RN [email or web address] 12:44 PM Hair removed from procedure site in holding area using clippers. Right wrist prepped with Chloraprep by Saroj Barry RN, safety strap applied then patient was draped. Skin intact. [email or web address] 12:46 PM Beth Ceballos RN Position: Monitor Time in: 12:45 [email or web address] 12:46 PM April Fernandez RN Position: Dowel Maker Time in: 12:46 [email or web address] 12:46 PM Saroj Barry RN Position:scrub Time in: 12:46 [email or web address] 12:46 PM Patient charges- Angio tray pack, Navilyst 3mm J, Pulse Oximetry and ACIST tubing and transducer [email or web address] 12:48 PM HR=75 bpm, QZCQ=995/109 mmhg, SpO2=98.0 %, Resp=21 B/min, Comment=SR 12:49 PM Time: 12:49 Patient comfortable and pain free: Yes [email or web address] 12:49 PM Time: 12:49LOC: 5 = Fully awake and oriented or at pre-proc level [email or web address] 12:52 PM Time out performed according to hospital policy [email or web address] 12:53 PM Time: 12:52 Benadryl 25 mg Intravenous Given by April Fernandez RN [facility] 12:53 PM HR=73 bpm, THPA=921/111 mmhg, SpO2=97.0 %, Resp=22 B/min, Comment=SR 12:55 PM Time: 12:53 0.5 ml Lidocaine 2% to right radial Subcutaneous Given by Zuri López MD, [facility] [email or web address] 12:57 PM Time: 12:57 Versed 1 mg Intravenous Given by April Fernandez RN [email or web address] 12:57 PM Time: 12:57 Fentanyl 25 mcg Intravenous Given by April Fernandez RN [email or web address] 12:58 PM HR=73 bpm, OZQX=548/109 mmhg, SpO2=98.0 %, Resp=22 B/min, Comment=SR 12:59 PM Access obtained by percutaneous puncture. 6Fr 10cm Terumo Glidesheath sheath placed in right Radial artery. [id number] [email or web address] 12:59 PM Time: 12:59 Patient given 200 mcg Nitroglycerin, and 2.5 mg Verapamil Intraarterial by Zuri López MD, [facility] [email or web address] 01:00 PM 5Fr FR 5 catheter inserted over the wire [facility] [email or web address] 01:01 PM Time: 13:01 Benadryl 25 mg Intravenous Given by April Fernandez RN [email or web address] 01:01 PM Time: 13:01 Patient comfortable and pain free: Yes [email or web address] 01:01 PM Time: 13:01LOC: 5 = Fully awake and oriented or at pre-proc level [email or web address] 01:02 PM Recorded Pressure: Ao, HR=73, Condition=Condition 1 (Aorta) Ao 128/100/114 01:02 PM RCA angiography performed in multiple views. [email or web address] 01:02 PM Catheter removed [email or web address] 01:03 PM 5Fr FL 3.5 catheter inserted over the wire DNC [email or web address] 01:03 PM HR=73 bpm, XGOJ=798/107 mmhg, SpO2=96.0 %, Resp=18 B/min, Comment=SR 01:04 PM LCA angiography performed in multiple views. [email or web address] 01:04 PM Recorded Pressure: Ao, HR=73, Condition=Condition 1 (Aorta) Ao 136/97/114 01:06 PM Catheter removed [email or web address] 01:08 PM HR=72 bpm, POGP=141/101 mmhg, SpO2=98.0 %, Resp=21 B/min, Comment=SR 01:08 PM 6Fr EBU 3.5 Medtronic guide catheter was used to cannulate the PCI vessel successfully. reused? No [email or web address] 01:08 PM .014 Prowater 180cm guide wire across target lesion- successful. reused? No [email or web address] 01:10 PM At 13:10 the ACT was 98 seconds. [email or web address] 01:10 PM Time: 13:10 Heparin 4000 units Intravenous Given by April Fernandez RN [email or web address] 01:11 PM Time: 13:11 Versed 1 mg Intravenous Given by April Fernandez RN [email or web address] 01:11 PM Time: 13:11 Fentanyl 25 mcg Intravenous Given by April Fernandez RN [email or web address] 01:12 PM Recorded Pressure: Ao, HR=72, Condition=Condition 1 (Aorta) Ao 137/88/108 01:13 PM 2.5 mm x 15 mm Emerge Monorail balloon across target lesion- successful. reused? No [email or web address] 01:14 PM HR=71 bpm, PVJU=687/112 mmhg, SpO2=98.0 %, Resp=17 B/min, Comment=SR 01:15 PM Coronary Dominance: right [email or web address] 01:16 PM Balloon inflated @ 16 christofer for 30 seconds [email or web address] 01:16 PM Time: 13:01LOC: 5 = Fully awake and oriented or at pre-proc level [email or web address] 01:16 PM Time: 13:01 Patient comfortable and pain free: Yes [email or web address] 01:17 PM Lesion found in Mid LAD. Pre Stenosis: 100 Pre ENEDINA Flow: 0: No Flow/No perfusion [email or web address] 01:18 PM HR=72 bpm, BHCY=032/101 mmhg, SpO2=97.0 %, Resp=19 B/min, Comment=SR 01:18 PM 3.0 mm x 15mm NC Emerge balloon across target lesion- successful. reused? No [email or web address] 01:19 PM Time: 13:16LOC: 5 = Fully awake and oriented or at pre-proc level [email or web address] 01:19 PM Time: 13:16 Patient comfortable and pain free: Yes [email or web address] 01:20 PM Balloon inflated @ 20 christofer for 21 seconds [email or web address] 01:20 PM Balloon catheter removed intact. [email or web address] 01:20 PM Guide wire removed intact. [email or web address] 01:21 PM Time: 13:21 Nitroglycerin 200 mcg Intracoronary Given by Zuri López MD, FAC [email or web address] 01:23 PM HR=73 bpm, RTRM=066/96 mmhg, SpO2=97.0 %, Resp=20 B/min, Comment=SR 01:24 PM Guide catheter removed intact. [email or web address] 01:24 PM 5Fr Pigtail catheter inserted over the wire [facility] [email or web address] 01:24 PM Catheter selectively placed in left ventricle [email or web address] 01:25 PM Recorded Pressure: LV, HR=72, Condition=Condition 1 (Left Ventricle) LV 126/23/24 01:25 PM Bolus angiogram of left Ventricle complete: 8 ml/sec for a total of 24 mls [email or web address] 01:26 PM Recorded Pressure: LV, Ao, HR=72, Condition=Condition 1 (Left Ventricle) LV 125/34/39, (Aorta) Ao 125/90/107 01:26 PM Catheter removed over the wire then wire removed [email or web address] 01:27 PM Procedure completed at 13:27 [email or web address] 01:28 PM Sign out completed: Radiation Dose 1199.83 mGy Fluoro Time: 7.8 Isovue 370 - 200ml contrast 141 ml given by Zuri Lóepz MD, [facility]. Complications: NoneCardiac Rehab Consult needed: YesConfirmed administered medications: Yes [email or web address] 01:28 PM HR=72 bpm, NEDT=623/103 mmhg, SpO2=97.0 %, Resp=13 B/min, Comment=SR 01: PM Time: 13:28 Plavix 600 mg Orally Given by April Fernandez RN [email or web address] 01:29 PM Isovue 370 - 200ml,1 Bottle(s) used. [email or web address] 01:29 PM Arterial sheath pulled, Vasc Band closure device used and was Successful [email or web address] 01:29 PM 30 ml air in Vasc Band. [email or web address] 01:29 PM Post ECG NSR [email or web address] 01:29 PM Post Blood Pressure 163/103 [email or web address] 01:29 PM 13:29 Post Pulses Rt Radial 1+ [email or web address] 01:30 PM Information taught Cardiac Cath, IVUS/Flowire, and Vasc Band [email or web address] 01:30 PM Education needs Plan of Care, Discharge Instructions, and Responsibilities of Patient in Care [email or web address] 01:31 PM Learning barriers :None [email or web address] 01:31 PM Education Methods Verbal [email or web address] 01:31 PM Education evaluation Able to repeat information [email or web address] 01:32 PM Site status No bleeding/hematoma - Rt Wrist as reported by Saroj Barry RN at 13:32 [email or web address] 01:33 PM HR=68 bpm, KPXC=127/70 mmhg, SpO2=98.0 %, Resp=23 B/min, Comment=SR 01:33 PM Plavix, Effient or Brilinta given Yes [email or web address] 01:34 PM Time: 13:19 Patient comfortable and pain free: Yes [email or web address] :34 PM Time: 13:19LOC: 5 = Fully awake and oriented or at pre-proc level [email or web address] 01:35 PM Mid/Distal Left Anterior Descending Coronary Artery and diagonal branches with 100% stenosis. [email or web address] 01:35 PM Lesion found in Right PL. Pre Stenosis: 60 Pre ENEDINA Flow: 3: Complete and Brisk Flow/Perfusion [email or web address] 01:35 PM Right Coronary, Right Posterior Descending Arteries with Right Posterolateral and Acute Marginal branches with 60 % stenosis. [email or web address] 01:42 PM Report given to Rosangela BRITO Pt taken to 2A Room #32. 13:42 [email or web address] 01:42 PM Delay to floor No [email or web address] 01:42 PM Patient out of room: 13:42 [email or web address] 01:42 PM Family placed in consult room. [email or web address] 01:42 PM Complications: None ejohnson Complications Complication None Hemodynamics Pressures Site Systolic/A Wave Diastolic/V Wave Mean AO 128 100 114 AO 136 97 114 AO 137 88 108 LV 126 23 24 LV 125 34 39 AO 125 90 107 Post Procedure Information Blood Pressure: 163/103 mmHg Rhythm: NSR Post procedural instructions were given Closure Device Time Device Success/Fail 07/16/2016 1:29:00 PM Mechanical Compression Site Checks Time Location Status Staff Sheath In? Note 01:32 PM Rt Wrist No bleeding/hematoma Saroj Barry RN Pulses Time Site Pre-Procedure Post-Procedure Note 07/16/2016 12:44:00 PM Bilateral radial 2+ 07/16/2016 12:44:00 PM Rt Radial Normal plethysmography's Test 1:29:00 PM Rt Radial 1+ Updated by Beth Ceballos RN on 07/16/2016 1:43:47 PM Beth Ceballos RN electronically signed on 07/16/2016 1:44:07 PM with status of Final
[2016-07-16 17:43] LABS: Bilirubin,Urine Negative (Negative); Blood,Urine Negative (Negative); Clarity,Urine Clear (Clear); Color,Urine Yellow (Yellow); Glucose,Urine (UA) Normal (Normal); Ketones,Urine Negative (Negative); Leukocyte Esterase,Urine Negative (Negative); Nitrite,Urine Negative (Negative); Protein,Urine Negative (Neg-Trace); Specific Gravity,Urine 1.016 (1.010-1.025); Urobilinogen,Urine Normal (Normal)
--- NOTE | 2016-07-16 18:17 | Invasive Diagnostic Lab ---
Name: Arjun Evangelista Date of Study: 07/16/2016 Date: 1975 Ht: 182.9 cm /72.0 in Medical Record#: [id number] Age: 41 Wt: 183.2 kg / 403.89 lb Account/Order#: [id number] Gender: Male BSA: 2.87 Order #: [id number] Fluoro Dose: 1200 mGy BMI: 54.76 Procedure Physician: Zuri López MD, [facility] Referring MD: Referring MD: Procedures Performed: LEFT HEART CATH PTCA Single Major Vessel Indications: Non-Stemi Impressions: Double vessel coronary artery disease. Acute stent thrombosis of mid LAD due to Plavix noncompliance. The left ventricle EF 55% Recommendations: Dual antiplatelet therapy. Optimal medical therapy of patient's disease. Aggressive risk factor modification. History/Risk Factors: Diabetes Dyslipidemia Family History of CAD Chronic Lung Disease Procedure Access obtained in the right Radial artery by percutaneous puncture Patient had successful PTCA in the mid LAD. Complications: None Contrast: Isovue 141ml Closure Device: Mechanical Compression Hemodynamics: Pressures Site Systolic/ A Wave Diastolic/ V Wave End Diastolic/ Mean HR AO 128 100 114 73 AO 136 97 114 73 AO 137 88 108 72 LV 126 23 24 72 LV 125 34 39 72 AO 125 90 107 71 LV Ventriculography Ejection Method: LV Gram Ejection Fraction: 55% Wall Motion: HARRIS Anterobasal Normal Anterolateral Normal Apical: Moderate Hypokinesis Inferoapical Normal Inferobasal Normal Coronary Dominance: right Lesion Findings/Interventions * Left Main Coronary Artery The LMCA is angiographically free of disease. * Left Anterior Descending There is a 15 mm long, 100% instent thrombosis in the Mid LAD. The lesion has a ENEDINA flow of 0 and has thrombus present. An intervention was performed on the Mid LAD with a final stenosis of 0%. There were no lesion complications. The final ENEDINA flow was 3. * Circumflex The Circumflex is angiographically free of disease. The 1st Marginal is angiographically free of disease. * Ramus The Ramus is angiographically free of disease. * Right Coronary Artery The RCA is angiographically free of disease. The Right PDA is angiographically free of disease. There is 50% stenosis in R PL branch- small, distal vessel Interventional Device(s) Vessel Segment Type Name Diameter (mm) Length (mm) Mid LAD Balloon Emerge Monorail 2.5 15 Mid LAD Balloon NC Emerge 3 15 Updated by Zuri López MD, FACC on 07/16/2016 6:12:03 PM Zuri López MD, FACC electronically signed on 07/16/2016 6:13:49 PM with status of Final
[2016-07-16] MEDS: *HR* OxyCODONE/APAP 5/325 TABLET PO PRN (20:25)
[2016-07-16] MEDS ORDERED: Insulin LISPRO 300 UNITS/3 ML VIAL SQ SCH (21:00)
[2016-07-17 04:44] LABS: Basophils # 0.1 K/mcL (0.0-0.2); Basophils % 0.4 %; Eosinophils # 0.2 K/mcL (0.0-0.6); Eosinophils % 2.1 %; Hematocrit 43.5 % (37.5-50.1); Hemoglobin 14.3 g/dL (12.9-16.9); Immature Granulocytes % 0.4 % (0-4); Lymphocytes # 3.7 K/mcL (0.6-4.6); Lymphocytes % 32.7 %; Mean Corpuscular HGB Conc 32.9 g/dL (31.6-35.5); Mean Corpuscular Volume 91.2 fL (83.0-100.0); Mean Platelet Volume 10.3 fL (9.4-12.4); Monocytes # 0.9 K/mcL (0.0-1.3); Monocytes % 7.6 %; Neutrophils # 6.4 K/mcL (1.6-8.9); Platelet Count 218 K/mcL (140-400); Red Blood Count 4.77 M/mcL (4.19-5.50); Red Cell Distribution Width 13.2 % (11.5-14.5); Segmented Neutrophils % 56.8 %
[2016-07-17 05:47] LABS: BUN/Creatinine Ratio 14 (6-26); Blood Urea Nitrogen 10 mg/dL (8-26); Carbon Dioxide 26 mEq/L (19-29); Chloride 104 mEq/L (98-109); Glucose 125 mg/dL (70-99); Osmolality,Calculated 287 (280-300); Sodium 138 mEq/L (136-145); eGFR For African Americans > 60 (> 60); eGFR For Non-African Americans > 60 (> 60)
[2016-07-17] MEDS ORDERED: Insulin LISPRO 300 UNITS/3 ML VIAL SQ SCH (07:30)
[2016-07-17 07:45] VITALS: BP 145/87
[2016-07-17] MEDS: OXcarbazepine 150 MG TABLET PO SCH (08:23)
[2016-07-17] MEDS: amLODIPine 5 MG TABLET PO SCH (08:23)
[2016-07-17] MEDS: lamoTRIgine 100 MG TABLET PO SCH (08:23)
[2016-07-17] MEDS: Aspirin 81 MG TAB.CHEW PO SCH (08:23)
[2016-07-17] MEDS ORDERED: Metoprolol XL (24 HR) Succ 50 MG TAB.ER.24H PO SCH (09:00)
--- NOTE | 2016-07-17 09:01 | Cardiology Progress Note ---
Date of Encounter: 07/17/16 Time of Encounter: 08:00 Assessment and Plan (1) NSTEMI (non-ST elevated myocardial infarction) Current Visit: Yes Status: Acute Troponin 0.01, 0.14, 1.71. Hx of MA with PCI to mLAD in October 2016; has missed at least 5 days of DAPT. [facility] 07/16/16: EF 55%, acute stent thrombosis d/t plavix non-compliance. Existing 50% R PL branch, small distal vessel. Chest pain free upon exam. Emphasized the importance of medication compliance with emphasis on uninterrupted DAPT (asa+ plavix) therapy. Continue statin, betablocker, ACEi, and calcium channel rachel. Risk factor modification including tobacco cessation, weight loss/exercise, and improved glycemic control. Follow-up with [facility] in 5-7 days. No further inpatient testing from Cardiology standpoint--follow-up in 5-7 days, will coordinate appt. (2) Hypertension Current Visit: Yes Status: Chronic Severely elevated upon admission, SBP >200. Control improved with addition of ACEi and calcium channel rachel. Qualifiers: Hypertension type: essential hypertension Qualified Code(s): I10 - Essential (primary) hypertension (3) Tobacco abuse Current Visit: Yes Status: Chronic >1ppd x23 years. Smoking cessation counseling discussed. Discussion w patient/family: The assessment and plan as outlined above was discussed with the patient and/or family members who expressed understanding and agreement. All questions were answered. Thank you for involving us in the care of your patient. Please call with any questions. The patient was discussed with Dr. Parveen López; Cardiology will sign-off, please call with questions. Subjective Principal diagnosis: NSTEMI Interval history: Seen and examined. Denies recurrent chest pain or discomfort since PCI yesterday. No issues with right radial cath site. Objective Vital Signs, Last 4 Hours Temp Pulse Resp BP Pulse Ox 07/17/16 07:44 97.8 F 78 16 145/87 94 General: Conversant, Other (morbidly obese) HEENT: Atraumatic, Normocephaly Cardiac: Reg Rate and Rhythm, Normal S1 and S2 Lungs: Normal Breath Sounds Neuro: Alert and responsive Abdomen: Soft Skin: No rashes noted on visualized skin Musculoskeletal: No Chest Wall Tenderness Extremities: No Edema, Normal Pulses Results 07/17/16 04:23 07/17/16 05:18 Lab Results 07/16/16 07/17/16 07/17/16 08:13 04:23 05:18 WBC 11.3 H Hgb 14.3 Hct 43.5 Plt Count 218 Sodium 138 Potassium 4.0 Chloride 104 Carbon Dioxide 26 BUN 10 Creatinine 0.72 Glucose 125 H Calcium 9.0 Troponin I 4.63 H* Active Medications Amlodipine Besylate (Norvasc) 2.5 mg PO DAILY [facility] PRN Reason: Protocol Stop: 01/15/17 10:16 Last Admin: 07/17/16 08:23 Dose: 2.5 mg Aspirin (Aspirin) 81 mg PO DAILY [facility] Stop: 01/15/17 09:01 Last Admin: 07/17/16 08:23 Dose: 81 mg Atorvastatin Calcium (Lipitor) 80 mg PO HS [facility] Stop: 01/15/17 00:31 Last Admin: 07/16/16 20:12 Dose: 80 mg Clopidogrel Bisulfate (Plavix) 75 mg PO DAILY [facility] Stop: 01/15/17 09:01 Last Admin: 07/17/16 08:23 Dose: 75 mg Dextrose/Water (Dextrose 50% (Syg)) 25 ml IVP AD PRN PRN Reason: Hypoglycemia Stop: 01/15/17 00:22 Doxepin HCl (Sinequan) 100 mg PO [facility] Stop: 01/15/17 00:31 Last Admin: 07/16/16 20:11 Dose: 100 mg Glucagon (Glucagen) 1 mg IM ONCE PRN PRN Reason: Hypoglycemia Stop: 01/15/17 00:22 Glucose (Gluctose) 15 gm PO ONCE PRN PRN Reason: Hypoglycemia Stop: 01/15/17 00:22 Glucose (Gluctose) 30 gm PO ONCE PRN PRN Reason: Hypoglycemia Stop: 01/15/17 00:22 Dextrose (Dextrose 5%) 1,000 mls @ 100 mls/hr IVC .Q10H PRN PRN Reason: HYPOGLYCEMIA Stop: 01/15/17 00:22 Insulin Human Lispro (Humalog) 0 units SQ TIDAC [facility] PRN Reason: Protocol Stop: 01/16/17 07:31 Last Admin: 07/17/16 07:44 Dose: Not Given Insulin Human Lispro (Humalog) 0 units SQ [facility] PRN Reason: Protocol Stop: 01/15/17 21:01 Last Admin: 07/16/16 21:11 Dose: Not Given Lamotrigine (Lamictal) 100 mg PO BID [facility] Stop: 01/15/17 09:01 Last Admin: 07/17/16 08:23 Dose: 100 mg Lisinopril (Zestril) 5 mg PO DAILY [facility] PRN Reason: Protocol Stop: 01/15/17 09:31 Last Admin: 07/17/16 08:22 Dose: 5 mg Lisinopril (Zestril) 10 mg PO DAILY [facility] PRN Reason: Protocol Stop: 01/15/17 14:01 Last Admin: 07/17/16 08:22 Dose: 10 mg Metoprolol Succinate (Toprol Xl) 100 mg PO DAILY [facility] Stop: 01/16/17 09:01 Last Admin: 07/17/16 08:23 Dose: 100 mg Morphine Sulfate (Morphine Sulfate) 2 mg IVP Q4HR PRN PRN Reason: Severe Pain (7-10) Stop: 01/15/17 00:18 Last Admin: 07/16/16 11:31 Dose: 2 mg Naloxone HCl (Narcan) 0.4 mg IVP Q2MIN PRN PRN Reason: Opioid Reversal Stop: 01/15/17 00:18 Nitroglycerin (Nitroglycerin) 0.4 mg SL Q5MIN PRN PRN Reason: Chest Pain Stop: 01/14/17 18:47 Last Admin: 07/15/16 19:03 Dose: 0.4 mg Ondansetron HCl (Zofran) 4 mg IVP Q6HR PRN; Protocol PRN Reason: Nausea And Vomiting Stop: 01/15/17 13:49 Oxcarbazepine (Trileptal) 300 mg PO BID [facility] Stop: 01/15/17 09:01 Last Admin: 07/17/16 08:23 Dose: 300 mg Oxycodone/Acetaminophen (Percocet 5/325) 1 each PO Q8HR PRN PRN Reason: Pain Stop: 01/15/17 20:17 Last Admin: 07/16/16 20:25 Dose: 1 each Tizanidine HCl (Zanaflex) 4 mg PO TID PRN PRN Reason: Muscle Spasm Stop: 01/15/17 00:21 - Imaging and Cardiology Echo: report reviewed Cardiac cath: report reviewed Other Results: 12 hour tele: avg HR=74 SR. No significant event noted. - EKG Interpretation EKG results cardiology: personally reviewed Consult Discharge Plan - Plan Referrals: David Mendes MD [Primary Care Provider] - (web request sent on 07/16/16)
[2016-07-17] MEDS: *HR* OxyCODONE/APAP 5/325 TABLET PO PRN (10:03)
--- NOTE | 2016-07-17 10:25 | Discharge Summary ---
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 Qualified Code(s): E11.42 - Type 2 diabetes mellitus with diabetic polyneuropathy (4) Morbid obesity with BMI of 50.0-59.9, adult Priority: Secondary Status: Chronic (5) Bipolar 1 disorder, manic, mild Priority: Secondary Status: Chronic (6) Diabetes mellitus Priority: Secondary Status: Chronic Qualifiers: Diabetes mellitus type: type 2 Diabetes mellitus complication status: with unspecified complications Diabetes mellitus long-term insulin use: without long-term use Qualified Code(s): E11.8 - Type 2 diabetes mellitus with unspecified complications (7) Hypertension Priority: Secondary Status: Chronic Qualifiers: Hypertension type: essential hypertension Qualified Code(s): I10 - Essential (primary) hypertension - Discharge Medications Prescriptions: amLODIPine [Norvasc] 2.5 mg PO DAILY 30 Days Lisinopril [Zestril] 10 mg PO DAILY #30 tablet Home Medications: Lamotrigine [Lamictal] 100 mg PO BID 11/29/14 [History] Oxycodone HCl/Acetaminophen [Percocet 5-325 mg Tablet] 1 each PO TID 11/29/14 [ History] Tizanidine [Zanaflex] 4 mg PO TID PRN 11/29/14 [History] Metformin HCl [Glucophage] 1,000 mg PO BIDWM 07/21/15 [History] Aspirin 81 mg PO DAILY #30 tab.chew 10/18/15 [Rx] Clopidogrel [Plavix] 75 mg PO DAILY #30 tablet 10/23/15 [Rx] Atorvastatin Calcium [Lipitor] 80 mg PO HS 07/15/16 [History] Doxepin HCl 100 mg PO HS 07/15/16 [History] Metoprolol Succinate 100 mg PO DAILY 07/15/16 [History] OXcarbazepine [Oxcarbazepine] 300 mg PO BID 07/15/16 [History] Lisinopril [Zestril] 10 mg PO DAILY #30 tablet 07/17/16 [Rx] amLODIPine [Norvasc] 2.5 mg PO DAILY 30 Days 07/17/16 [Rx] Allergies/Adverse Reactions: Allergies cephalexin [From Keflex] Allergy (Verified 10/23/15 07:20) Redness of Skin ketorolac [From Toradol] Adverse Reaction (Verified 10/23/15 07:20) Itching Procedures/tests Complete & Pending: Procedures Performed prior 72 hours Category Date Time Status CL Cardiac Catheterization [CL] Routine Pet Adoption Counselor 07/16/16 10:12 Completed ECG 12 lead ECG [ECG] Routine Y 07/15/16 17:44 Completed ECG 12 lead ECG [ECG] Stat Y 07/16/16 13:48 Ordered Date of admission: 07/16/16 00:17 Primary care physician: David Mendes MD Consults: 07/16/16 00:19 Consult to Cardiology [CONS] Routine Comment: Consulting Provider: Cardiology Lyn Reason for Consult: Pls assist us in managing this pt with concern for NSTEMI , for cath consideration, thanks Call Completed: No 07/16/16 04:04 Consult to Nutrition [CONS] Routine Comment: Consulting Provider: NUTRITION Reason for Dietary Consult: Diet Education 07/16/16 09:20 Consult to Cardiac Rehabilitation-Phase1 [CONS] Routine Comment: Reason for Consult: NSTEMI Call Completed: No Discharging clinician: Jose León Anticipated date of discharge: 07/17/16 - Patient Status Disposition: Home, Self-Care Condition: Fair Functional capacity at discharge: independent ambulation Overall status at discharge: patient is back to baseline - Discharge Instructions Instructions: Myocardial Infarction (DC), Right Heart Catheterization (DC), Chronic Hypertension (DC) Follow Up With: David Mendes MD [Primary Care Provider] - (web request sent on 07/16/16) Lizzy Saleem CNP [Partnered Physician] - (Follow up with cardio in 5-7 days , cardio to call.) - Diet and Activity Activity: increase activity as tolerated Interval History: Mr. Evangelista is a 41 year old male with a history of DM/HTN/Morbid obesity/CAD s/ p ADRIANO placement in mid LAD in 10/2015 was brought in last night for chest pain. He was in his usual state of health until he began to have an argument with his . During this argument he started having chest pain that was retrosternal in location, was 9/10 in severity, radiated to his left arm and between his shoulder blades. It was constant since it began but over the past 3 days he has had intermittent chest pain those of which resolved with nitro. This pain that brought him in however did not respond to nitro. It was associated with lightheadedness, diaphoresis, nausea and vomiting, feeling of apprehension, dyspnea and dyspnea on exertion during the episode. In the ER his EKG was unchanged, his initial troponin was unremarkable but repeat troponin abut 3 hours later was elevated and he was still having chest pain so he is being admitted as NSTEMI for cardiology input. Hospital course: Mr. Evangelista is a 41 year old male admitted due to chest pain, poor adherence to plavix at home. patient has pmedications at home and has refills. Troponin 0.01, 0.14, 1.71. Hx of MA with PCI to mLAD in October 2016; has missed at least 5 days of DAPT. [facility] 07/16/16: EF 55%, acute stent thrombosis d/t plavix non-compliance. Existing 50% R PL branch, small distal vessel. Today he was chest pain free upon exam. Emphasized the importance of medication compliance with emphasis on uninterrupted DAPT (asa+ plavix) therapy. Continue statin, betablocker, ACEi, and calcium channel rachel. Risk factor modification including tobacco cessation, weight loss/exercise, and improved glycemic control. Follow-up with [facility] in 5-7 days. D/W patient. Patient has prescriptions and meds at home including plavix and aspirin. - Time Spent with Patient Total time spent providing and/or coordinating discharge services: - Constitutional Vitals: Temp Pulse Resp BP Pulse Ox 97.8 F 78 16 145/87 94 07/17/16 07:44 07/17/16 07:44 07/17/16 07:44 07/17/16 07:44 07/17/16 09:12 General appearance: Present: cooperative, A&O X 3, morbidly obese - Head Head exam: Present: atraumatic, normocephalic - Eye Eye exam: Present: PERRL, conjuntiva pink, sclera anicteric Pupils: Present: PERRL - Neck Neck exam general surgery: Present: supple, trachea midline. Absent: lymphadenopathy - Respiratory Respiratory exam: Present: CTAB. Absent: accessory muscle use, rales, rhonchi, wheezes - Cardiovascular Cardiovascular exam: Present: RRR, +S1, +S2. Absent: diastolic murmur, gallop, rubs, systolic murmur - GI/Abdominal GI/Abdominal exam: Present: normal bowel sounds, soft, no peritoneal signs. Absent: distended, tenderness - Extremities Exam Extremities exam: Present: warm, radial pulses palpable and symetrical. Absent : calf tenderness, cyanotic, pedal edema - Neurological Exam Neurological exam: Present: CN II-XII intact, oriented X3, no focal deficits. Absent: pronater drift, facial droop, speech deficit - Skin Skin exam: Present: dry, intact
--- NOTE | 2016-07-17 12:32 | Electrocardiograph Report ---
[address] [place], [place] [address] Test Date: 2016-07-15 Pat Name: Arjun Evangelista Department: 103 Room: 2A37 Gender: M Superintendent Pressure: ASHLEY : 1975 Requested By: Jose León Order Number: [id number] Reading MD: Parveen López Measurements Intervals [place] Rate: 95 P: 12 MI: 150 QRS: -30 QRSD: 98 T: 56 QT: 351 QTc: 404 Interpretive Statements SINUS RHYTHM POSSIBLE ANTERIOR MYOCARDIAL INFARCTION, OF INDETERMINATE AGE Electronically Signed On 07-17-2016 12:30:08 EDT by Parveen López
--- NOTE | 2016-07-17 12:33 | Electrocardiograph Report ---
[address] [place], [place] [address] Test Date: 2016-07-15 Pat Name: Arjun Evangelista Department: 102 Room: 2A37 Gender: M Manager Legal: : 1975 Requested By: Cisco Novak Order Number: [id number] Reading MD: Parveen López Measurements Intervals [place] Rate: 88 P: 30 VT: 157 QRS: 23 QRSD: 96 T: 47 QT: 352 QTc: 397 Interpretive Statements SINUS RHYTHM POSSIBLE ANTERIOR MYOCARDIAL INFARCTION, OF INDETERMINATE AGE Electronically Signed On 07-17-2016 12:32:14 EDT by Parveen López
--- NOTE | 2016-07-17 12:36 | Electrocardiograph Report ---
[address] [place], [place] [address] Test Date: 2016-07-15 Pat Name: Arjun Evangelista Department: 102 Room: 2A37 Gender: M Infection Control Coordinator: [place] : 1975 Requested By: Cisco Novak Order Number: [id number] Reading MD: Parveen López Measurements Intervals [place] Rate: 80 P: 25 NE: 151 QRS: 24 QRSD: 95 T: 31 QT: 371 QTc: 406 Interpretive Statements SINUS RHYTHM POSSIBLE ANTERIOR MYOCARDIAL INFARCTION, OF INDETERMINATE AGE Electronically Signed On 07-17-2016 12:34:52 EDT by Parveen López
== END 2016-07-17 11:01 | disposition home or self-care (01) | DRG 251 ==
LOC: 2ANU 17:37 → EMEROO 17:37 → 2ANU 23:15
PROVIDERS: ADMIT Internal Medicine; ATTEND Internal Medicine

== ENCOUNTER 2016-12-27 08:18 | Observation (INO) ==
--- NOTE | 2016-12-27 08:36 | Emergency Department Note ---
Disposition Clinical Impression: Chest pain, rule out acute myocardial infarction Disposition: Admitted As Inpatient Condition: Fair Referrals: David Mendes MD [Primary Care Provider] - Forms: ED Satisfaction Letter Time of Disposition: : Chest Pain HPI - General Chief Complaint: ED Chest Pain Stated Complaint: chest pain x2 days Time Seen by Provider: 12/27/16 08:25 Source: patient Limitations: no limitations Vital Signs Reviewed: Yes Nursing Notes Reviewed: Yes - History of Present Illness HPI Narrative: 41-year-old male arrives for evaluation of interscapular chest pain that radiates into the left neck. Symptoms began 1-1/2 days ago and gradually worsened since. 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 He states the symptoms feel similar to his initial WI. He complains of accompanying nausea and diaphoresis. He denies any pleuritic pain, hemoptysis, cough, fever, vomiting, or abdominal pain. He states that he took 3 nitroglycerin tablets yesterday evening with only mild improvement. This pain originated at rest. He states that it is worsened with even slight exertion. Pt complaint: chest pain Onset (ago): day(s) (1.5 days ago) Duration: constant Onset: during rest Pain Location: other (Intrascapular) Severity: moderate Severity scale (1-10): 8 Quality: sharp Pain Radiation: neck Improves with: nitroglycerin (Mild improvement) Worsens with: nothing Associated symptoms: Reports: nausea, diaphoresis. Denies: vomiting, dyspnea, palpitations, fever, cough, leg swelling Treatments prior to arrival chest pain: nitroglycerin - Related Data Home Medications Medication Instructions Recorded Confirmed Lamotrigine [Lamictal] 100 mg PO BID 11/29/14 12/27/16 Oxycodone HCl/Acetaminophen 1 each PO TID 11/29/14 12/27/16 [Percocet 5-325 mg Tablet] Tizanidine [Zanaflex] 4 mg PO TID PRN 11/29/14 12/27/16 Metformin HCl [Glucophage] 1,000 mg PO BIDWM 07/21/15 12/27/16 Atorvastatin Calcium [Lipitor] 80 mg PO HS 07/15/16 12/27/16 Doxepin HCl 100 mg PO HS 07/15/16 12/27/16 Metoprolol Succinate 100 mg PO DAILY 07/15/16 12/27/16 OXcarbazepine [Oxcarbazepine] 300 mg PO BID 07/15/16 12/27/16 Previous Rx's Medication Instructions Recorded Aspirin 81 mg PO DAILY #30 tab.chew 10/18/15 Clopidogrel [Plavix] 75 mg PO DAILY #30 tablet 10/23/15 Allergies Allergy/AdvReac Type Severity Reaction Status Date / Time cephalexin [From Keflex] Allergy Redness of Verified 10/23/16 12:59 Skin ketorolac [From Toradol] AdvReac Itching Verified 10/23/16 12:59 All systems ED: reviewed and negative except as stated. Constitutional: Denies: fever, chills, weakness, weight change Eyes: Denies: eye pain, eye discharge, vision change ENT ED: Denies: ear pain, throat pain, dental pain, hearing loss, epistaxis, congestion, dysphagia Cardiovascular: Reports: as per HPI, chest pain, dyspnea on exertion, other ( Diaphoresis). Denies: palpitations, edema, syncope Respiratory: Denies: cough, dyspnea, wheezes, hemoptysis, stridor Gastrointestinal: Reports: as per HPI, nausea. Denies: abdominal pain, vomiting , diarrhea, constipation, hematemesis, melena, hematochezia Genitourinary: Denies: urgency, dysuria, frequency, hematuria Musculoskeletal: Denies: back pain, neck pain, arthralgia, myalgia Integumentary: Denies: rash, abrasion, lesions Neurological: Denies: headache, weakness, numbness, paresthesias, confusion, abnormal gait, vertigo Psychiatric: Denies: anxiety, depression, suicidal thoughts, homicidal thoughts , auditory hallucinations, visual hallucinations Endocrine: Denies: fatigue Hematological/Lymphatic: Denies: easy bleeding, easy bruising Allergic/Immunologic: Denies: facial swelling, urticaria Chest Pain PMH - Past Medical History Medical history: Reports: coronary artery disease, diabetes, migraine, myocardial infarction, other Surgical history: Reports: angioplasty/stent, appendectomy Psychiatric history: Reports: anxiety, bipolar, panic disorder, PTSD - Social History Smoking Status: Current every day smoker Alcohol use: Reports: none Drug use: Reports: none Physical Exam - General Limitations: no limitations General appearance: alert, obese - Head Head exam: atraumatic, normocephalic, normal inspection - Eye Eye exam: Present: normal appearance, PERRL, EOMI. Absent: nystagmus - ENT ENT exam: mucous membranes moist - Neck Neck exam: Present: normal inspection, full ROM, trachea midline - Chest Chest inspection: Present: normal inspection, symmetric chest wall rise - Respiratory Respiratory exam: Present: wheezes (Mild expiratory wheezing noted.). Absent: respiratory distress, stridor, accessory muscle use, prolonged expiratory phase - Cardiovascular Cardiovascular exam: Present: regular rate, normal rhythm, normal heart sounds - Abdominal Exam Abdominal exam: Present: soft, Non-Tender, normal bowel sounds - Extremities Exam Extremities exam: Present: normal inspection, full ROM. Absent: tenderness, pedal edema - Neurological Exam Neurological exam: Present: alert, oriented X3 - Psychiatric Psychiatric exam: Present: normal affect, normal mood - Skin Skin exam: Present: warm, intact, normal color, rash, other (Diaphoretic) Course Course Narrative: I have discussed this patient's case with Dr. Asencio. Dr. Westfall has had a face- to-face evaluation with patient. 1010: I spoke with Dr. Sanchez of the hospitalist service. Dr. Sanchez accepts patient for admission for chest pain rule out. Vital Signs Temperature 98.2 F 12/27/16 08:21 Pulse Rate 93 12/27/16 08:21 Respiratory Rate 20 12/27/16 08:21 Blood Pressure 162/92 12/27/16 08:21 O2 Sat by Pulse Oximetry 97 12/27/16 08:21 Temperature 98.2 F 12/27/16 08:21 Pulse Rate 85 12/27/16 10:02 Respiratory Rate 18 12/27/16 10:02 Blood Pressure 122/101 12/27/16 10:02 O2 Sat by Pulse Oximetry 98 12/27/16 10:02 Oxygen Delivery Oxygen Delivery Nasal Cannula Chest Pain - Medical Records Medical records reviewed: Yes I reviewed the patient's medical records. - Lab Data Lab results reviewed: Yes I reviewed the patient's lab results. Lab results narrative: Lab Results 12/27/16 12/27/16 12/27/16 Range/Units 08:44 08:44 08:44 WBC 13.7 H (4.3-11.1) K/mcL RBC 5.04 (4.19-5.50) M/mcL Hgb 15.0 (12.9-16.9) g/dL Hct 45.5 (37.5-50.1) % MCV 90.3 (83.0-100.0) fL MCH 29.8 (28.0-33.3) pg MCHC 33.0 (31.6-35.5) g/dL RDW 12.7 (11.5-14.5) % Plt Count 244 (140-400) K/mcL MPV 9.9 (9.4-12.4) fL Immature Gran % 0.5 (0-4) % Seg Neutrophils % 72.7 % Lymphocytes % 18.6 % Monocytes % 6.1 % Eosinophils % 1.7 % Basophils % 0.4 % Neutrophils # 9.9 H (1.6-8.9) K/mcL Lymphocytes # 2.5 (0.6-4.6) K/mcL Monocytes # 0.8 (0.0-1.3) K/mcL Eosinophils # 0.2 (0.0-0.6) K/mcL Basophils # 0.1 (0.0-0.2) K/mcL PT 11.5 (9.4-12.1) Seconds INR 1.1 APTT 31.3 (26.0-36.0) Seconds D-Dimer 274 (0-500) ng/mLFEU Sodium 137 (136-145) mEq/L Potassium 3.9 (3.5-4.5) mEq/L Chloride 100 (98-109) mEq/L Carbon Dioxide 24 (19-29) mEq/L BUN 6 L (8-26) mg/dL Creatinine 0.83 (0.72-1.25) mg/dL Est GFR ( Amer) > 60 (> 60) Est GFR (Non-Af Amer) > 60 (> 60) BUN/Creatinine Ratio 7 (6-26) Glucose 216 H (70-99) mg/dL Calculated Osmolality 288 (280-300) Calcium 9.3 (8.6-10.8) mg/dL Magnesium 1.5 L (1.6-2.6) mg/dL Troponin I (0-0.03) ng/mL 12/27/16 Range/Units 08:44 WBC (4.3-11.1) K/mcL RBC (4.19-5.50) M/mcL Hgb (12.9-16.9) g/dL Hct (37.5-50.1) % MCV (83.0-100.0) fL MCH (28.0-33.3) pg MCHC (31.6-35.5) g/dL RDW (11.5-14.5) % Plt Count (140-400) K/mcL MPV (9.4-12.4) fL Immature Gran % (0-4) % Seg Neutrophils % % Lymphocytes % % Monocytes % % Eosinophils % % Basophils % % Neutrophils # (1.6-8.9) K/mcL Lymphocytes # (0.6-4.6) K/mcL Monocytes # (0.0-1.3) K/mcL Eosinophils # (0.0-0.6) K/mcL Basophils # (0.0-0.2) K/mcL PT (9.4-12.1) Seconds INR APTT (26.0-36.0) Seconds D-Dimer (0-500) ng/mLFEU Sodium (136-145) mEq/L Potassium (3.5-4.5) mEq/L Chloride (98-109) mEq/L Carbon Dioxide (19-29) mEq/L BUN (8-26) mg/dL Creatinine (0.72-1.25) mg/dL Est GFR ( Amer) (> 60) Est GFR (Non-Af Amer) (> 60) BUN/Creatinine Ratio (6-26) Glucose (70-99) mg/dL Calculated Osmolality (280-300) Calcium (8.6-10.8) mg/dL Magnesium (1.6-2.6) mg/dL Troponin I 0.01 (0-0.03) ng/mL Result diagrams: 12/27/16 08:44 12/27/16 08:44 Lab Results 12/27/16 12/27/16 12/27/16 Range/Units 08:44 08:44 08:44 WBC 13.7 H (4.3-11.1) K/mcL RBC 5.04 (4.19-5.50) M/mcL Hgb 15.0 (12.9-16.9) g/dL Hct 45.5 (37.5-50.1) % MCV 90.3 (83.0-100.0) fL MCH 29.8 (28.0-33.3) pg MCHC 33.0 (31.6-35.5) g/dL RDW 12.7 (11.5-14.5) % Plt Count 244 (140-400) K/mcL MPV 9.9 (9.4-12.4) fL Immature Gran % 0.5 (0-4) % Seg Neutrophils % 72.7 % Lymphocytes % 18.6 % Monocytes % 6.1 % Eosinophils % 1.7 % Basophils % 0.4 % Neutrophils # 9.9 H (1.6-8.9) K/mcL Lymphocytes # 2.5 (0.6-4.6) K/mcL Monocytes # 0.8 (0.0-1.3) K/mcL Eosinophils # 0.2 (0.0-0.6) K/mcL Basophils # 0.1 (0.0-0.2) K/mcL PT 11.5 (9.4-12.1) Seconds INR 1.1 APTT 31.3 (26.0-36.0) Seconds D-Dimer 274 (0-500) ng/mLFEU Sodium 137 (136-145) mEq/L Potassium 3.9 (3.5-4.5) mEq/L Chloride 100 (98-109) mEq/L Carbon Dioxide 24 (19-29) mEq/L BUN 6 L (8-26) mg/dL Creatinine 0.83 (0.72-1.25) mg/dL Est GFR ( Amer) > 60 (> 60) Est GFR (Non-Af Amer) > 60 (> 60) BUN/Creatinine Ratio 7 (6-26) Glucose 216 H (70-99) mg/dL Calculated Osmolality 288 (280-300) Calcium 9.3 (8.6-10.8) mg/dL Magnesium 1.5 L (1.6-2.6) mg/dL Troponin I (0-0.03) ng/mL 12/27/16 Range/Units 08:44 WBC (4.3-11.1) K/mcL RBC (4.19-5.50) M/mcL Hgb (12.9-16.9) g/dL Hct (37.5-50.1) % MCV (83.0-100.0) fL MCH (28.0-33.3) pg MCHC (31.6-35.5) g/dL RDW (11.5-14.5) % Plt Count (140-400) K/mcL MPV (9.4-12.4) fL Immature Gran % (0-4) % Seg Neutrophils % % Lymphocytes % % Monocytes % % Eosinophils % % Basophils % % Neutrophils # (1.6-8.9) K/mcL Lymphocytes # (0.6-4.6) K/mcL Monocytes # (0.0-1.3) K/mcL Eosinophils # (0.0-0.6) K/mcL Basophils # (0.0-0.2) K/mcL PT (9.4-12.1) Seconds INR APTT (26.0-36.0) Seconds D-Dimer (0-500) ng/mLFEU Sodium (136-145) mEq/L Potassium (3.5-4.5) mEq/L Chloride (98-109) mEq/L Carbon Dioxide (19-29) mEq/L BUN (8-26) mg/dL Creatinine (0.72-1.25) mg/dL Est GFR ( Amer) (> 60) Est GFR (Non-Af Amer) (> 60) BUN/Creatinine Ratio (6-26) Glucose (70-99) mg/dL Calculated Osmolality (280-300) Calcium (8.6-10.8) mg/dL Magnesium (1.6-2.6) mg/dL Troponin I 0.01 (0-0.03) ng/mL - Radiology Data Radiology results reviewed: Yes I reviewed the patient's radiology results. Chest X-Ray 12/27/16 08:26 IMPRESSION: No acute findings D/ / Avis Mcneill MD / Avis Mcneill MD Interpreting Provider: Avis Mcneill MD - EKG Data EKG attestation: Yes I reviewed and interpreted this EKG. EKG results narrative: EKG reviewed by Dr. Asencio as well. EKG shows sinus rhythm with possible inferior WI of indeterminate age, possible anterolateral WI of indeterminate age. Ventricular rate of 96 bpm. [place] interval 146, QRS duration 101, QT/QTc interval 344/399. No ectopy noted. No STEMI. Heart Score - Score History: Highly Suspicious EKG: Normal Age: Less than 45 Risk Factors: Equal/Greater than 3 risk factor or history of atherosclerotic disease Troponin: Less than normal limit HEART Score Total: 4 Attestation Statement - Attestation Attestation: For this encounter, I have reviewed the MEDICAL FRONT DESK SPECIALIST or PA documentation, treatment plan, and medical decision making; and I have had face to face time with this patient. 41-year-old male who has a history of previous WI comes in complaining of chest pain since yesterday. States it somewhat in character and severity to his previous WI. Physical exam lungs are clear cardiovascular exams unremarkable. EKG does not show any evidence of STEMI. Patient will be admitted to the hospital for further evaluation and treatment.
[2016-12-27] MEDS ORDERED: Aspirin 81 MG TAB.CHEW PO ONE (08:38)
[2016-12-27] MEDS: Nitroglycerin 0.4 MG TAB.SUBL SL PRN ×3 (08:46→08:56)
[2016-12-27 08:56] LABS: Basophils # 0.1 K/mcL (0.0-0.2); Basophils % 0.4 %; Eosinophils # 0.2 K/mcL (0.0-0.6); Eosinophils % 1.7 %; Hematocrit 45.5 % (37.5-50.1); Immature Granulocytes % 0.5 % (0-4); Lymphocytes # 2.5 K/mcL (0.6-4.6); Lymphocytes % 18.6 %; Mean Corpuscular Hemoglobin 29.8 pg (28.0-33.3); Mean Corpuscular Volume 90.3 fL (83.0-100.0); Mean Platelet Volume 9.9 fL (9.4-12.4); Monocytes # 0.8 K/mcL (0.0-1.3); Monocytes % 6.1 %; Neutrophils # 9.9 K/mcL (1.6-8.9); Platelet Count 244 K/mcL (140-400); Red Blood Count 5.04 M/mcL (4.19-5.50); Red Cell Distribution Width 12.7 % (11.5-14.5); Segmented Neutrophils % 72.7 %
[2016-12-27 09:00] LABS: INR 1.1; Prothrombin Time 11.5 Seconds (9.4-12.1)
[2016-12-27 09:02] LABS: Activated Partial Thrombo Time 31.3 Seconds (26.0-36.0)
[2016-12-27] MEDS ORDERED: Ondansetron 4 MG/2 ML VIAL IVP ONE (09:03)
[2016-12-27] MEDS ORDERED: *HR* Morphine 2 MG/ML SYRINGE IVP ONE (09:03)
[2016-12-27 09:09] LABS: BUN/Creatinine Ratio 7 (6-26); Blood Urea Nitrogen 6 mg/dL (8-26); Calcium 9.3 mg/dL (8.6-10.8); Carbon Dioxide 24 mEq/L (19-29); Chloride 100 mEq/L (98-109); Glucose 216 mg/dL (70-99); Magnesium 1.5 mg/dL (1.6-2.6); Osmolality,Calculated 288 (280-300); Potassium 3.9 mEq/L (3.5-4.5); Sodium 137 mEq/L (136-145); eGFR For African Americans > 60 (> 60); eGFR For Non-African Americans > 60 (> 60)
[2016-12-27] MEDS ORDERED: Magnesium Oxide 400 MG TABLET PO STA (10:14)
[2016-12-27] MEDS ORDERED: Acetaminophen 325 MG TABLET PO PRN (10:50)
[2016-12-27] MEDS ORDERED: Ondansetron 4 MG/2 ML VIAL IVP PRN (10:50)
[2016-12-27] MEDS ORDERED: Naloxone 0.4 MG/ML INJ IVP PRN (10:50)
[2016-12-27] MEDS ORDERED: tiZANidine 4 MG TABLET PO PRN (10:52)
[2016-12-27] MEDS ORDERED: Dextrose Gel 15 GM PO PRN ×2 (10:55)
[2016-12-27] MEDS ORDERED: D5% in Water 1,000 ML IVC PRN (10:55)
[2016-12-27] MEDS ORDERED: *HR* Dextrose 50 % in Water (Syg) 50 ML SYRINGE IVP PRN (10:55)
--- NOTE | 2016-12-27 11:53 | Internal Med History&Physical ---
Date of Encounter: 12/27/16 Time of Encounter: 11:46 Assessment and Plan (1) Chest pain Current visit: Yes Status: Acute Patient has been experiencing chest pain for the past 2 days he does have a cardiac history with stent placement in the past. He has been noncompliant with past with DAPT and had restenosis of stent in July of this year. He states he has been compliant with his medication regime. First troponin 0 we will continue to trend troponins Continue with nitroglycerin and morphine as needed for pain Continuous cardiac monitoring Low-sodium diet Continue with aspirin and Plavix beta rachel and lisinopril statin Patient to be nothing by mouth after midnight for stress test in a.m. Check lipid profile in a.m. Qualifiers: Chest pain type: other chest pain Qualified Code(s): R07.89 - Other chest pain; R07.8 - Other chest pain (2) Tobacco abuse Current visit: No Status: Chronic Encouraged patient to stop smoking he states he has tried in the past without success. 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 He does express that he is having some anxiety now we will continue with his home medications (5) DVT prophylaxis Current visit: No Status: Acute Lovenox [facility] Internal Medicine - H&P: HPI Chief complaint: CP Admitted From: Emergency Dept Plans for Post Hospital Care: Home History of present illness: Mr. Evangelista is a 41 year old male past medical history of diabetes hypertension bipolar morbid obesity ID with stent placement. The patient did have an ID in with PCI to [facility] in July of this year he presented again with chest pain and was found to have had acute stent thrombus due to noncompliance of DAPT . Missed 5 days. Today he presents with interscapular chest pain that radiates to his left neck. Symptoms began approximately 2 days ago have gradually worsened. The pain originates at rest and worsens with even slight exertion, associated symptoms of nausea, shortness of breath and lightheadedness. He took 3 nitros yesterday with only mild improvement he is concerned because his symptoms are similar to his previous ID and presented for evaluation. ER cardiac workup was unremarkable. He was admitted for further workup evaluation. Presently he continues to complain of 7 out of 10 chest pain despite nitroglycerin and morphine. First troponin 0 sinus rhythm on monitor lung sounds are clear heart sounds are regular S1 and S2 with no rubs with counselors noted. He is hemodynamically stable this time. I reviewed this case with DR Lebron who agrees with plan. Past Med Surg Social Fam HX - Past Medical History Medical history: coronary artery disease, diabetes, migraine, myocardial infarction, other Psychiatric history: anxiety, bipolar, panic disorder, PTSD - Past Surgical History Surgical History: angioplasty/stent, appendectomy - Social History Smoking Status: Current every day smoker Smokeless Tobacco Status: No Alcohol use: none Drug use: none - Family History Father Living Status: Still Living Hx Family Cardiac Disorders: Yes Hx Family Respiratory Disorders: No Hx Family Cancer: No Hx Family GI Disorders: No Hx Family Endocrine Disorder: Yes Hx Family Neuromuscular Disorders: No Hx Family Neurologic Disorders: No Hx Family HEENT Disorders: No Hx Family Autoimmune Disorders: No Mother Hx Family Cardiac Disorders: Yes (HTN, arrythmias.) Hx Family Endocrine Disorder: Yes (DM(II)) Internal Medicine - H&P: Meds Lamotrigine [Lamictal] 100 mg PO BID 11/29/14 [History] Oxycodone HCl/Acetaminophen [Percocet 5-325 mg Tablet] 1 each PO TID 11/29/14 [ History] Tizanidine [Zanaflex] 4 mg PO TID PRN 11/29/14 [History] Metformin HCl [Glucophage] 1,000 mg PO BIDWM 07/21/15 [History] Aspirin 81 mg PO DAILY #30 tab.chew 10/18/15 [Rx] Clopidogrel [Plavix] 75 mg PO DAILY #30 tablet 10/23/15 [Rx] Atorvastatin Calcium [Lipitor] 80 mg PO HS 07/15/16 [History] Doxepin HCl 100 mg PO HS 07/15/16 [History] Metoprolol Succinate 100 mg PO DAILY 07/15/16 [History] OXcarbazepine [Oxcarbazepine] 300 mg PO BID 07/15/16 [History] 3 Allergy/AdvReac Type Severity Reaction Status Date / Time cephalexin [From Keflex] Allergy Redness of Verified 10/23/16 12:59 Skin ketorolac [From Toradol] AdvReac Itching Verified 10/23/16 12:59 All Systems PM: A 10-system review of systems was performed and is negative for pertinent findings except as documented above in the HPI. - Constitutional Constitutional: no chills, no fever(s), no night sweats - EENT Eyes: no change in vision, no discharge, no pain, no photophobia Nose, mouth and throat: no dysphagia, no nasal discharge, no neck pain, no sore throat - Cardiovascular Cardiovascular ROS IM: chest pain, dyspnea, lightheadedness - Respiratory Respiratory: no cough, no dyspnea, no wheezing, no excessive phlegm production - Gastrointestinal Gastrointestinal: no abdominal pain, no diarrhea, no hematemesis, no hematochezia, no melena, no nausea, no vomiting - Musculoskeletal Musculoskeletal ROS IM: no numbness, no tingling - Integumentary Integumentary IM: no rash, no unusual bruising - Neurological Neurological ROS: no confusion, no convulsions, no focal weakness, no numbness, no tingling, no tremor(s) - Hematologic/Lymphatic Hematologic/Lymphatic: no easy bruising - Constitutional Vitals: Temp Pulse Resp BP Pulse Ox 98.2 F 82 18 144/85 95 12/27/16 08:21 12/27/16 11:19 12/27/16 11:19 12/27/16 11:19 12/27/16 11:19 General appearance: Present: A&O X 3, answers questions appropriately - Head Head exam: Present: atraumatic, normocephalic - Eye Eye exam: Present: PERRL, conjuntiva pink, sclera anicteric Pupils: Present: PERRL - Respiratory Respiratory exam: Present: CTAB. Absent: accessory muscle use, rales, rhonchi, wheezes - Cardiovascular Cardiovascular exam: Present: RRR, +S1, +S2. Absent: diastolic murmur, gallop, rubs, systolic murmur - GI/Abdominal GI/Abdominal exam: Present: normal bowel sounds, soft, no peritoneal signs. Absent: distended, tenderness - Extremities Exam Extremities exam: Present: pedal edema, warm, radial pulses palpable and symmetrical. Absent: calf tenderness, cyanotic - Neurological Exam Neurological exam: Present: CN II-XII intact, oriented X3, no focal deficits. Absent: pronater drift, facial droop, speech deficit - Skin Skin exam: Present: dry, intact Internal Med - H&P Results - Labs CBC & Chem 7: 12/27/16 08:44 12/27/16 08:44 Labs: Short CBC 12/27/16 Range/Units 08:44 WBC 13.7 H (4.3-11.1) K/mcL Hgb 15.0 (12.9-16.9) g/dL Hct 45.5 (37.5-50.1) % Plt Count 244 (140-400) K/mcL Neutrophils # 9.9 H (1.6-8.9) K/mcL BMP 12/27/16 08:44 Sodium 137 Potassium 3.9 Chloride 100 Carbon Dioxide 24 BUN 6 L Creatinine 0.83 Glucose 216 H Calcium 9.3 Cardiac Enzymes 12/27/16 Range/Units 08:44 Troponin I 0.01 (0-0.03) ng/mL - EKG Data EKG shows normal: sinus rhythm - EKG Data Prior EKG available for review: yes When compared to previous EKG: there is no significant change EKG comments: 12/27/16 11:54 I reviewed EKG with Dr Lebron - Impressions ITS Impressions Chest X-Ray 12/27/16 08:26 IMPRESSION: No acute findings D/ / Avis Mcneill MD / Avis Mcneill MD Interpreting Provider: Avis Mcneill MD - Diagnostic Studies Other Images Additional comments: Chest X-Ray 12/27/16 08:26
[2016-12-27] MEDS ORDERED: Lidocaine -MPF 2% 5 ML VIAL INFILT ONE (12:15)
[2016-12-27] MEDS ORDERED: *HR* Propofol 200 MG/20 ML VIAL IVP ONE (12:15)
[2016-12-27] MEDS: Insulin LISPRO 300 UNITS/3 ML VIAL SQ SCH ×3 (12:48→21:37)
[2016-12-27] MEDS: *HR* Morphine 2 MG/ML SYRINGE IVP PRN ×3 (13:59→21:30)
[2016-12-27] MEDS: Nitroglycerin 1 INCH/GM PACKET TP SCH (14:03)
[2016-12-27] MEDS: Nicotine 14 MG PATCH.TD24 TD SCH (14:06)
[2016-12-27] MEDS ORDERED: *HR* OxyCODONE/APAP 5/325 TABLET PO SCH (15:00)
[2016-12-27 16:12] LABS: Alanine Aminotransferase 27 Units/L (0-55); Albumin 3.5 g/dL (3.5-5.0); Albumin/Globulin Ratio 0.9 (1.1-2.2); Alkaline Phosphatase 81 Units/L (38-126); Amylase 98 Units/L (25-125); Aspartate Amino Transferase 25 Units/L (5-34); Bilirubin,Direct 0.1 mg/dL (0.0-0.5); Bilirubin,Indirect 0.2 mg/dL (0.0-1.2); Bilirubin,Total 0.3 mg/dL (0.2-1.2); Lipase 71 Units/L (8-78); Total Protein 7.5 g/dL (6.0-8.3)
--- NOTE | 2016-12-27 16:22 | Electrocardiograph Report ---
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
[2016-12-27] MEDS: Metoprolol XL (24 HR) Succ 50 MG TAB.ER.24H PO SCH (17:31)
[2016-12-27] MEDS: lamoTRIgine 100 MG TABLET PO SCH (21:21)
[2016-12-27] MEDS: OXcarbazepine 150 MG TABLET PO SCH (21:21)
[2016-12-27] MEDS ORDERED: ALPRAZolam 0.5 MG TABLET PO ONE (23:32)
[2016-12-28 04:14] LABS: Basophils # 0.1 K/mcL (0.0-0.2); Basophils % 0.4 %; Eosinophils # 0.5 K/mcL (0.0-0.6); Eosinophils % 3.5 %; Hematocrit 45.7 % (37.5-50.1); Immature Granulocytes % 0.3 % (0-4); Lymphocytes # 4.3 K/mcL (0.6-4.6); Lymphocytes % 29.9 %; Mean Corpuscular HGB Conc 32.8 g/dL (31.6-35.5); Mean Corpuscular Hemoglobin 29.6 pg (28.0-33.3); Mean Corpuscular Volume 90.3 fL (83.0-100.0); Monocytes # 0.9 K/mcL (0.0-1.3); Monocytes % 6.5 %; Neutrophils # 8.5 K/mcL (1.6-8.9); Platelet Count 229 K/mcL (140-400); Red Blood Count 5.06 M/mcL (4.19-5.50); Red Cell Distribution Width 12.8 % (11.5-14.5); Segmented Neutrophils % 59.4 %
[2016-12-28] MEDS: Nitroglycerin 1 INCH/GM PACKET TP SCH ×2 (04:21→11:49)
[2016-12-28 04:28] LABS: BUN/Creatinine Ratio 11 (6-26); Blood Urea Nitrogen 9 mg/dL (8-26); Calcium 9.6 mg/dL (8.6-10.8); Carbon Dioxide 30 mEq/L (19-29); Chloride 101 mEq/L (98-109); Chol/HDL Ratio 5.8 (0-4.9); Cholesterol 207 mg/dL (< 200); Glucose 146 mg/dL (70-99); HDL Cholesterol 36 mg/dL (40-59); LDL Cholesterol,Calculated 128 mg/dL (0-99); Magnesium 1.8 mg/dL (1.6-2.6); Osmolality,Calculated 289 (280-300); Potassium 4.1 mEq/L (3.5-4.5); Sodium 139 mEq/L (136-145); Triglycerides 213 mg/dL (< 150); eGFR For African Americans > 60 (> 60); eGFR For Non-African Americans > 60 (> 60)
[2016-12-28] MEDS ORDERED: Regadenoson 0.4 MG/5 ML SYRINGE IVP ONE (05:44)
[2016-12-28] MEDS ORDERED: Metoprolol XL (24 HR) Succ 50 MG TAB.ER.24H PO SCH (09:00)
[2016-12-28] MEDS: Insulin LISPRO 300 UNITS/3 ML VIAL SQ SCH ×4 (10:05→20:51)
[2016-12-28] MEDS ORDERED: *HR* LORazepam 0.5 MG TABLET PO ONE (10:06)
[2016-12-28] MEDS: *HR* OxyCODONE/APAP 5/325 TABLET PO PRN ×3 (10:14→21:08)
[2016-12-28] MEDS: *HR* Enoxaparin 40 MG/0.4 ML SYRINGE SQ SCH (11:42)
[2016-12-28] MEDS: Aspirin 81 MG TAB.CHEW PO SCH (11:42)
[2016-12-28] MEDS: OXcarbazepine 150 MG TABLET PO SCH ×2 (11:48→20:51)
[2016-12-28] MEDS: lamoTRIgine 100 MG TABLET PO SCH ×2 (11:48→20:51)
[2016-12-28] MEDS: Nicotine 14 MG PATCH.TD24 TD SCH (11:49)
[2016-12-28] MEDS: Metoprolol XL (24 HR) Succ 50 MG TAB.ER.24H PO SCH (11:49)
[2016-12-28] MEDS ORDERED: SODIUM CHLORIDE/NAHCO3/KCL/PEG 4,000 ML SOLN.RECON PO ONE (18:00)
--- NOTE | 2016-12-28 18:10 | Internal Med Progress Note ---
Date of Encounter: 12/28/16 Time of Encounter: 11:00 - Assessment and plan (1) Chest pain Current Visit: No Status: Acute Assessment and plan: Patient will complete part two stress tests for ACS rule out on 12/29/16 Qualifiers: Chest pain type: unspecified Qualified Code(s): R07.9 - Chest pain, unspecified (2) Epigastric abdominal pain Current Visit: Yes Status: Acute Assessment and plan: Patient with epigastric tenderness in addition to hematochezia We will consult GI. Appreciate recommendations. (3) Diabetes mellitus Current Visit: No Status: Chronic Assessment and plan: Continue home medications Qualifiers: Diabetes mellitus type: type 2 Diabetes mellitus complication status: with unspecified complications Diabetes mellitus intermediate teacher insulin use: without intermediate teacher use Qualified Code(s): E11.8 - Type 2 diabetes mellitus with unspecified complications (4) Hypertension Current Visit: No Status: Chronic Assessment and plan: Continued home medications Qualifiers: Hypertension type: essential hypertension Qualified Code(s): I10 - Essential (primary) hypertension (5) Bipolar 1 disorder Current Visit: No Status: Chronic Assessment and plan: Continue home medications (6) Morbid obesity with BMI of 50.0-59.9, adult Current Visit: No Status: Chronic Assessment and plan: Dietary modifications (7) DVT prophylaxis Current Visit: No Status: Acute Assessment and plan: Lovenox subcutaneous - Subjective Interval history: No acute events overnight - Constitutional Vitals: Temp Pulse Resp BP Pulse Ox 97.7 F 67 20 147/107 94 12/28/16 15:41 12/28/16 15:41 12/28/16 15:41 12/28/16 15:41 12/28/16 15:41 General appearance: Present: A&O X 3, answers questions appropriately - Respiratory Respiratory exam: Present: CTAB. Absent: accessory muscle use, rales, rhonchi, wheezes - Cardiovascular Cardiovascular exam: Present: RRR, +S1, +S2. Absent: diastolic murmur, gallop, rubs, systolic murmur - GI/Abdominal GI/Abdominal exam: Present: tenderness (Epigastric tenderness) Internal Medicine: Result - Labs CBC & Chem 7: 12/28/16 03:47 12/28/16 03:47 Labs: Short CBC 12/28/16 Range/Units 03:47 WBC 14.4 H (4.3-11.1) K/mcL Hgb 15.0 (12.9-16.9) g/dL Hct 45.7 (37.5-50.1) % Plt Count 229 (140-400) K/mcL Neutrophils # 8.5 (1.6-8.9) K/mcL BMP 12/28/16 03:47 Sodium 139 Potassium 4.1 Chloride 101 Carbon Dioxide 30 H BUN 9 Creatinine 0.81 Glucose 146 H Calcium 9.6 Cardiac Enzymes 12/27/16 Range/Units 19:32 Troponin I 0.01 (0-0.03) ng/mL - ABG Interpretation ABG results: PT/INR, D-dimer PT 11.5 Seconds (9.4-12.1) 12/27/16 08:44 D-Dimer 274 ng/mLFEU (0-500) 12/27/16 08:44 - Impressions Impressions Gallbladder Ultrasound 12/28/16 08:00 IMPRESSION: 1. No evidence of cholelithiasis or bile duct dilatation. 2. Hepatic steatosis. D/ / 12/28/2016 09:30:29 Lennox Walton MD / [place]ina Interpreting Provider: Lennox Walton MD Consult Discharge Plan - Plan Referrals: David Mendes MD [Primary Care Provider] - (web request)
[2016-12-29] MEDS: *HR* OxyCODONE/APAP 5/325 TABLET PO PRN ×3 (04:26→19:58)
[2016-12-29] MEDS ORDERED: *HR* LORazepam 0.5 MG TABLET PO ONE (06:30)
[2016-12-29] MEDS: *HR* Enoxaparin 40 MG/0.4 ML SYRINGE SQ SCH (06:30)
[2016-12-29] MEDS: Metoprolol XL (24 HR) Succ 50 MG TAB.ER.24H PO SCH (08:47)
[2016-12-29] MEDS: Insulin LISPRO 300 UNITS/3 ML VIAL SQ SCH ×4 (08:47→20:02)
[2016-12-29] MEDS: Aspirin 81 MG TAB.CHEW PO SCH (08:47)
[2016-12-29] MEDS: Nicotine 14 MG PATCH.TD24 TD SCH (08:48)
[2016-12-29] MEDS: OXcarbazepine 150 MG TABLET PO SCH ×2 (08:48→19:58)
[2016-12-29] MEDS: lamoTRIgine 100 MG TABLET PO SCH ×2 (08:48→19:58)
--- NOTE | 2016-12-29 09:58 | Gastroenterology Consult Note ---
<Kelsi Mott - Last Filed: 12/29/16 09:56> Date of Encounter: 12/29/16 Time of Encounter: 09:30 - Assessment and plan (1) GI bleed Current Visit: Yes Status: Acute Assessment and plan: Pt complains of diarrhea with dark bloody stools. He is on ASA and plavix for CAD and had stent placed 10/19. He needs EGD/colonoscopy to rule out/treat upper GI bleed, bleeding from ileum/cecum/ascending colon. He is unable to stop plavix as he had acute stent throbosis in July when he stopped plavix and aspirin for 5 days. Risks and benefits explained and pt is in agreement. H&H needs monitored, continue PPI. Qualifiers: GI bleed type/associated pathology: unspecified gastrointestinal hemorrhage type Qualified Code(s): K92.2 - Gastrointestinal hemorrhage, unspecified (2) Epigastric abdominal pain Current Visit: Yes Status: Acute Assessment and plan: Pt has epigastric pain and tenderness, and left sided chest pain. Cardiac workup has been negative thus far, stress test is pending. He needs EGD to rule out esophageal, gastric or duodenal causes of chest pain. - Time Spent With Patient Total time spent is greater than 50% in coordination of care (as documented) at patient's floor/unit and/or counseling patient: GI History of Present Illness - Data of Consult Patient: new to practice Consult date: 12/29/16 Requesting Physician: Emerson Block - Consult Narrative Reason for consult: GI bleed/epigastric pain History of present illness: Mr. Evangelista is a 41 year old male with a PMHX of DM, HTN bipolar depression, morbid obesity, IA with stent placement 10/19. He also had acute stent thrombus due to medication noncompliance. He presented with interscapular chest pain that radiated to his left neck. Symptoms began approximately 2 days prior to admission and gradually worsened. The pain originates at rest and worsens with even slight exertion. He also reported nausea without vomiting, shortness of breath and lightheadedness. He took 3 nitros with minimal improvement. He also reports intermittent diarrhea with dark bloody stools. He denies tarry stools or bright red rectal bleeding. He admits to frequent GERD and epigastric pain. Troponins were normal. He had stress test this am, results pending. GB ultrasound: No evidence of cholelithiasis or bile duct dilatation. Hepatic steatosis. Labs show a Hgb 15, Luzmaria 98, Lip 71. LFTs WNL. He is a current smoker , he denies ETOH or elicit drug use. He reports his grandmother had a history of colon cancer. Colonoscopy: denies EGD: denies NSAIDS: ASA ANTICOAGULANTS: plavix Past Med Surg Social Fam HX - Past Medical History Medical history: coronary artery disease, diabetes, migraine, myocardial infarction, other Psychiatric history: anxiety, bipolar, panic disorder, PTSD - Past Surgical History Surgical History: angioplasty/stent, appendectomy - Social History Smoking Status: Current every day smoker Packs per day: 1 Smokeless Tobacco Status: No Alcohol use: none Drug use: none - Family History Father Living Status: Still Living Hx Family Cardiac Disorders: Yes Hx Family Respiratory Disorders: No Hx Family Cancer: No Hx Family GI Disorders: No Hx Family Endocrine Disorder: Yes Hx Family Neuromuscular Disorders: No Hx Family Neurologic Disorders: No Hx Family HEENT Disorders: No Hx Family Autoimmune Disorders: No Mother Living Status: Still Living Hx Family Cardiac Disorders: Yes Hx Family Endocrine Disorder: Yes (DM(II)) Review of Systems: GI: as per [facility] GENERAL: denies fever, or chills EYES: denies yellow discoloration ENT: denies pain with swallowing or difficulty swallowing CARDIO: see HPI RESP: Shortness of breath with exertion : denies change in color of urine NEURO: denies any weakness HEME: Denies any bruising MS: chronic joint and back pain DERM: denies rash or itching PSYCH: history of anxiety or depression - Constitutional Vitals: Temp Pulse Resp BP Pulse Ox 97.6 F 70 16 135/88 94 12/29/16 07:58 12/29/16 07:58 12/29/16 07:58 12/29/16 07:58 12/29/16 07:58 Exam: CONSTITUTIONAL:~alert, no acute distress.~HEAD:~normocephalic.~EYES:~no jaundice.~NECK:~no obvious swelling.~HEART:~regular rate and rhythm, no murmurs. ~LUNGS:~bilateral fair air entry.~ABDOMEN:~non distended, obese.soft, tender to epigastric area, palpation difficult due to body habitus.~RECTAL EXAM:~Deferred. ~EXTREMITIES:~no clubbing, or cyanosis, trace BLE edema.~SKIN:~no stigmata of chronic liver disease.~NEUROLOGIC:~ no obvious focal defect Results - Labs CBC & Chem 7: 12/28/16 03:47 12/28/16 03:47 Labs: Last Result Calcium 9.6 mg/dL (8.6-10.8) 12/28/16 03:47 Troponin I 0.01 ng/mL (0-0.03) 12/27/16 19:32 Triglycerides 213 mg/dL (< 150) H 12/28/16 03:47 Entire Visit Hgb 15.0 g/dL (12.9-16.9) 12/28/16 03:47 Hct 45.7 % (37.5-50.1) 12/28/16 03:47 PT 11.5 Seconds (9.4-12.1) 12/27/16 08:44 Total Bilirubin 0.3 mg/dL (0.2-1.2) 12/27/16 08:44 AST 25 Units/L (5-34) 12/27/16 08:44 ALT 27 Units/L (0-55) 12/27/16 08:44 Amylase 98 Units/L (25-125) 12/27/16 08:44 Lipase 71 Units/L (8-78) 12/27/16 08:44 - ABG ABG results: PT/INR, D-dimer PT 11.5 Seconds (9.4-12.1) 12/27/16 08:44 D-Dimer 274 ng/mLFEU (0-500) 12/27/16 08:44 - Impressions Impressions Gallbladder Ultrasound 12/28/16 08:00 IMPRESSION: 1. No evidence of cholelithiasis or bile duct dilatation. 2. Hepatic steatosis. D/ / 12/28/2016 09:30:29 Lennox Walton MD / catalina Interpreting Provider: Lennox Walton MD Consult Discharge Plan - Plan Referrals: David Mendes MD [Primary Care Provider] - (web request) <Blanche Reed - Last Filed: 12/30/16 08:33> Date of Encounter: 12/30/16 Time of Encounter: 13:00 - Time Spent With Patient Total time spent is greater than 50% in coordination of care (as documented) at patient's floor/unit and/or counseling patient: GI History of Present Illness - Data of Consult Requesting Physician: Emerosn Block - Consult Narrative History of present illness: Mr. Evangelista is a 41 year old male - Constitutional Vitals: Temp Pulse Resp BP Pulse Ox 98.0 F 70 16 116/81 93 12/30/16 08:17 12/30/16 08:17 12/30/16 08:17 12/30/16 08:17 12/30/16 08:17 Results - Labs CBC & Chem 7: 12/29/16 10:08 12/29/16 10:08 Labs: Last Result Calcium 9.5 mg/dL (8.6-10.8) 12/29/16 10:08 Troponin I 0.01 ng/mL (0-0.03) 12/27/16 19:32 Triglycerides 213 mg/dL (< 150) H 12/28/16 03:47 Entire Visit Hgb 15.4 g/dL (12.9-16.9) 12/29/16 10:08 Hct 46.5 % (37.5-50.1) 12/29/16 10:08 PT 11.5 Seconds (9.4-12.1) 12/27/16 08:44 Total Bilirubin 0.3 mg/dL (0.2-1.2) 12/27/16 08:44 AST 25 Units/L (5-34) 12/27/16 08:44 ALT 27 Units/L (0-55) 12/27/16 08:44 Amylase 98 Units/L (25-125) 12/27/16 08:44 Lipase 71 Units/L (8-78) 12/27/16 08:44 - ABG ABG results: PT/INR, D-dimer PT 11.5 Seconds (9.4-12.1) 12/27/16 08:44 D-Dimer 274 ng/mLFEU (0-500) 12/27/16 08:44 - Attending Attestation I examined this patient and my medical decision-making was reviewed with the Resident Physician. I agree with the documented findings, disposition and treatment plan as described except to the extent set forth below.
[2016-12-29 10:35] LABS: Basophils # 0.1 K/mcL (0.0-0.2); Basophils % 0.5 %; Eosinophils # 0.5 K/mcL (0.0-0.6); Eosinophils % 3.8 %; Hematocrit 46.5 % (37.5-50.1); Hemoglobin 15.4 g/dL (12.9-16.9); Immature Granulocytes % 0.3 % (0-4); Lymphocytes # 2.9 K/mcL (0.6-4.6); Lymphocytes % 24.5 %; Mean Corpuscular HGB Conc 33.1 g/dL (31.6-35.5); Mean Corpuscular Hemoglobin 29.6 pg (28.0-33.3); Mean Corpuscular Volume 89.4 fL (83.0-100.0); Monocytes # 0.7 K/mcL (0.0-1.3); Monocytes % 6.2 %; Neutrophils # 7.7 K/mcL (1.6-8.9); Platelet Count 221 K/mcL (140-400); Red Cell Distribution Width 12.5 % (11.5-14.5); Segmented Neutrophils % 64.7 %
[2016-12-29 10:49] LABS: BUN/Creatinine Ratio 8 (6-26); Blood Urea Nitrogen 6 mg/dL (8-26); Calcium 9.5 mg/dL (8.6-10.8); Carbon Dioxide 27 mEq/L (19-29); Chloride 99 mEq/L (98-109); Glucose 128 mg/dL (70-99); Osmolality,Calculated 281 (280-300); Sodium 136 mEq/L (136-145); eGFR For African Americans > 60 (> 60); eGFR For Non-African Americans > 60 (> 60)
--- NOTE | 2016-12-29 12:03 | Anesthesia Evaluation PreOp ---
Date of Encounter: 12/29/16 Time of Encounter: 12:00 - Past History Planned Operation: EGD/Colonocopy Card[place] ([place] & stent placement with readmission 2016 re: Ischemic event/[id number]-thrombosis for Noncompliance w/DAPT), HTN (maintained on Metoprolol), Cardiac Stent, Other (Stress Test 12/27/2016 - Infarct without ischemia (see Findings below). Pharmacologic stress ECG is negative for ischemia at level of heart rate achieved. 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 (Anxiety/Depression/BiPolar disorder maintained on Lamictal) Other Medical History: Diabetes Type II (maintained on Metformin) Anesthesia History: No Prior Anesthetic Complications, Past Anesthesia (Appy, Angioplasty/Stent,) Alcohol Use: none Drug use: none Medications and Allergies Lamotrigine [Lamictal] 100 mg PO BID 11/29/14 [History] Oxycodone HCl/Acetaminophen [Percocet 5-325 mg Tablet] 1 each PO TID 11/29/14 [ History] Tizanidine [Zanaflex] 4 mg PO TID PRN 11/29/14 [History] Metformin HCl [Glucophage] 1,000 mg PO BIDWM 07/21/15 [History] Aspirin 81 mg PO DAILY #30 tab.chew 10/18/15 [Rx] Clopidogrel [Plavix] 75 mg PO DAILY #30 tablet 10/23/15 [Rx] Atorvastatin Calcium [Lipitor] 80 mg PO HS 07/15/16 [History] Doxepin HCl 100 mg PO HS 07/15/16 [History] Metoprolol Succinate 100 mg PO DAILY 07/15/16 [History] OXcarbazepine [Oxcarbazepine] 300 mg PO BID 07/15/16 [History] 3 Allergy/AdvReac Type Severity Reaction Status Date / Time cephalexin [From Keflex] Allergy Redness of Verified 10/23/16 12:59 Skin ketorolac [From Toradol] AdvReac Itching Verified 10/23/16 12:59 - Meds/Allergy Pre-op Review Medications Reviewed: Yes Allergies Reviewed: Yes Beta Blockers on Current Med List: Yes (Metoprolol) If Beta Blockers taken, Date/Time (Last Dose taken): 12/29/16 @ 0827 Anesthesia Results - Labs 12/29/16 10:08 12/29/16 10:08 Laboratory Results WBC 11.8 K/mcL (4.3-11.1) H 12/29/16 10:08 RBC 5.20 M/mcL (4.19-5.50) 12/29/16 10:08 Hgb 15.4 g/dL (12.9-16.9) 12/29/16 10:08 Hct 46.5 % (37.5-50.1) 12/29/16 10:08 MCV 89.4 fL (83.0-100.0) 12/29/16 10:08 MCH 29.6 pg (28.0-33.3) 12/29/16 10:08 MCHC 33.1 g/dL (31.6-35.5) 12/29/16 10:08 RDW 12.5 % (11.5-14.5) 12/29/16 10:08 Plt Count 221 K/mcL (140-400) 12/29/16 10:08 MPV 10.0 fL (9.4-12.4) 12/29/16 10:08 Immature Gran % 0.3 % (0-4) 12/29/16 10:08 Seg Neutrophils % 64.7 % 12/29/16 10:08 Lymphocytes % 24.5 % 12/29/16 10:08 Monocytes % 6.2 % 12/29/16 10:08 Eosinophils % 3.8 % 12/29/16 10:08 Basophils % 0.5 % 12/29/16 10:08 Neutrophils # 7.7 K/mcL (1.6-8.9) 12/29/16 10:08 Lymphocytes # 2.9 K/mcL (0.6-4.6) 12/29/16 10:08 Monocytes # 0.7 K/mcL (0.0-1.3) 12/29/16 10:08 Eosinophils # 0.5 K/mcL (0.0-0.6) 12/29/16 10:08 Basophils # 0.1 K/mcL (0.0-0.2) 12/29/16 10:08 PT 11.5 Seconds (9.4-12.1) 12/27/16 08:44 INR 1.1 12/27/16 08:44 APTT 31.3 Seconds (26.0-36.0) 12/27/16 08:44 D-Dimer 274 ng/mLFEU (0-500) 12/27/16 08:44 Sodium 136 mEq/L (136-145) 12/29/16 10:08 Potassium 4.0 mEq/L (3.5-4.5) 12/29/16 10:08 Chloride 99 mEq/L (98-109) 12/29/16 10:08 Carbon Dioxide 27 mEq/L (19-29) 12/29/16 10:08 BUN 6 mg/dL (8-26) L 12/29/16 10:08 Creatinine 0.75 mg/dL (0.72-1.25) 12/29/16 10:08 Est GFR ( Amer) > 60 (> 60) 12/29/16 10:08 Est GFR (Non-Af Amer) > 60 (> 60) 12/29/16 10:08 BUN/Creatinine Ratio 8 (6-26) 12/29/16 10:08 Glucose 128 mg/dL (70-99) H 12/29/16 10:08 POC Glucose 108 (58-89) H 12/28/16 19:57 Calculated Osmolality 281 (280-300) 12/29/16 10:08 Calcium 9.5 mg/dL (8.6-10.8) 12/29/16 10:08 Magnesium 1.8 mg/dL (1.6-2.6) 12/28/16 03:47 Total Bilirubin 0.3 mg/dL (0.2-1.2) 12/27/16 08:44 Direct Bilirubin 0.1 mg/dL (0.0-0.5) 12/27/16 08:44 Indirect Bilirubin 0.2 mg/dL (0.0-1.2) 12/27/16 08:44 AST 25 Units/L (5-34) 12/27/16 08:44 ALT 27 Units/L (0-55) 12/27/16 08:44 Alkaline Phosphatase 81 Units/L (38-126) 12/27/16 08:44 Troponin I 0.01 ng/mL (0-0.03) 12/27/16 19:32 Serum Total Protein 7.5 g/dL (6.0-8.3) 12/27/16 08:44 Albumin 3.5 g/dL (3.5-5.0) 12/27/16 08:44 Globulin 4.0 g/dL (2.4-3.5) H 12/27/16 08:44 Albumin/Globulin Ratio 0.9 (1.1-2.2) L 12/27/16 08:44 Triglycerides 213 mg/dL (< 150) H 12/28/16 03:47 Cholesterol 207 mg/dL (< 200) H 12/28/16 03:47 LDL Cholesterol, Calc 128 mg/dL (0-99) H 12/28/16 03:47 VLDL Cholesterol, Calc 43 mg/dL (< 31) H 12/28/16 03:47 HDL Cholesterol 36 mg/dL (40-59) L 12/28/16 03:47 Cholesterol/HDL Ratio 5.8 (0-4.9) H 12/28/16 03:47 Amylase 98 Units/L (25-125) 12/27/16 08:44 Lipase 71 Units/L (8-78) 12/27/16 08:44 Impressions Laboratory Tests 12/27/16 12/28/16 19:32 03:47 Troponin I 0.01 Triglycerides 213 H Cholesterol 207 H Chest X-Ray 12/27/16 08:26 IMPRESSION: No acute findings D/ / Avis Mcneill MD / Avis Mcneill MD Interpreting Provider: Avis Mcneill MD Gallbladder Ultrasound 12/28/16 08:00 IMPRESSION: 1. No evidence of cholelithiasis or bile duct dilatation. 2. Hepatic steatosis. D/ / 12/28/2016 09:30:29 Lennox Walton MD / catalina Interpreting Provider: Lennox Walton MD - Imaging EKG: image reviewed Anesthesia Exam Vital Signs Temp Pulse Resp BP Pulse Ox 12/29/16 11:39 97.7 F 67 18 152/85 94 12/29/16 07:58 97.6 F 70 16 135/88 94 12/29/16 04:00 98.6 F 75 19 143/80 96 12/28/16 23:37 98.8 F 94 19 110/74 96 12/28/16 20:04 97.5 F L 68 19 133/73 95 12/28/16 15:41 97.7 F 67 20 147/107 94 Intake and Output 12/28/16 12/29/16 12/29/16 23:59 07:59 15:59 Intake Total 5200 / 5200 0 / 0 Output Total 0 / 0 Balance 5200 / 5200 0 / 0 Intake: Oral 5200 / 5200 0 / 0 Output: Urine 0 / 0 Other: Meal Dinner Percent of Meal Consumed 0% Stool Size Moderate Stool Consistency liquid liquid Stool Color Pale White Weight 194.138 kg 194.138 kg Blood Glucose* 108 118 134 Patient Weight 12/29/16 23:59 Weight 194.138 kg Height: 6'0 Weight: 428# BMI = 58 - HEENT Pupil (Motor): Pupils equal, EOMI Mallampati: III Teeth: Poor dentition Oral Opening: Greater than 3 - 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: Oriented VOLLEYBALL REFEREE Motor: Normal RUE, Normal LUE, Normal RLE, Normal LLE, Normal Face VOLLEYBALL REFEREE Sensory: Normal: RUE, LUE, RLE, LLE, Face - Cardiac Rhythm: Regular Murmur: None - Pulmonary Breath Sounds: bilateral Clear Respiratory Effort: Symmetrical Anesthesia Assess/Plan ASA Score: 4 (Super MO/BMI = 58, Smoker, CAD) Modified Starla Scale for Level of Consciousness: Cooperative, oriented, and tranquil Anesthetic Plan: MAC Monitoring Plan: Standard Monitors Recovery Plan: PACU Anes Supervising Prov Stmt: Pt seen/evaluated, R&B discussed, questions answered and consent obtained. Jose Weinberg MD
[2016-12-29] MEDS ORDERED: 0.9 % Sodium Chloride 500 ML IVC SCH (13:30)
--- NOTE | 2016-12-29 15:28 | Anesthesia Evaluation Post Op ---
Date of Encounter: 12/29/16 Time of Encounter: 15:26 - Vital Signs Vital Signs: 3 Vital Signs Time 1520 BP 107/60 Pulse 79 Resp 20 O2 Sat 97 - Lungs Lungs: Clear Ascult./Percussion - Airway Airway: Non-obstructed - Cardiovascular Regular Rate - Mental Status Mental Status: Alert & Oriented, Answers Appropriately - Pain Pain Scale: 0 Pain Scale used: Numeric (1 - 10) - Nausea Vomiting Nausea Vomiting: Not Present - Hydration Hydration: NPO, Has not voided - Discharge PostOp Status: Transfer Patient to floor
--- NOTE | 2016-12-29 18:30 | Internal Med Progress Note ---
Date of Encounter: 12/29/16 Time of Encounter: 11:00 - Assessment and plan (1) Chest pain Current Visit: No Status: Acute Assessment and plan: Patient will complete part two stress tests for ACS rule out on 12/29/16 Qualifiers: Chest pain type: unspecified Qualified Code(s): R07.9 - Chest pain, unspecified (2) Epigastric abdominal pain Current Visit: Yes Status: Acute Assessment and plan: Patient with epigastric tenderness in addition to hematochezia EGD on 12/29/16 showed gastritis but no active bleeding; recommendations for PPI for 2 months. On endoscopy on 12/29/16 showed one 3 mm nonbleeding polyp in the sigmoid colon in addition to internal hemorrhoids. Recommendations for repeat colonoscopy in 5 years for surveillance. (3) Diabetes mellitus Current Visit: No Status: Chronic Assessment and plan: Continue home medications Qualifiers: Diabetes mellitus type: type 2 Diabetes mellitus complication status: with unspecified complications Diabetes mellitus senior living insulin use: without senior living use Qualified Code(s): E11.8 - Type 2 diabetes mellitus with unspecified complications (4) Hypertension Current Visit: No Status: Chronic Assessment and plan: Continued home medications Qualifiers: Hypertension type: essential hypertension Qualified Code(s): I10 - Essential (primary) hypertension (5) Bipolar 1 disorder Current Visit: No Status: Chronic Assessment and plan: Continue home medications (6) Morbid obesity with BMI of 50.0-59.9, adult Current Visit: No Status: Chronic Assessment and plan: Dietary modifications (7) DVT prophylaxis Current Visit: No Status: Acute Assessment and plan: Lovenox subcutaneous - Subjective Interval history: No acute events overnight - Constitutional Vitals: Temp Pulse Resp BP Pulse Ox 97.6 F 80 18 122/80 97 12/29/16 16:31 12/29/16 16:31 12/29/16 16:31 12/29/16 16:31 12/29/16 16:31 General appearance: Present: A&O X 3, answers questions appropriately - Respiratory Respiratory exam: Present: CTAB. Absent: accessory muscle use, rales, rhonchi, wheezes - Cardiovascular Cardiovascular exam: Present: RRR, +S1, +S2. Absent: diastolic murmur, gallop, rubs, systolic murmur Internal Medicine: Result - Labs CBC & Chem 7: 12/29/16 10:08 12/29/16 10:08 Labs: Short CBC 12/29/16 Range/Units 10:08 WBC 11.8 H (4.3-11.1) K/mcL Hgb 15.4 (12.9-16.9) g/dL Hct 46.5 (37.5-50.1) % Plt Count 221 (140-400) K/mcL Neutrophils # 7.7 (1.6-8.9) K/mcL BMP 12/29/16 10:08 Sodium 136 Potassium 4.0 Chloride 99 Carbon Dioxide 27 BUN 6 L Creatinine 0.75 Glucose 128 H Calcium 9.5 - ABG Interpretation ABG results: PT/INR, D-dimer PT 11.5 Seconds (9.4-12.1) 12/27/16 08:44 D-Dimer 274 ng/mLFEU (0-500) 12/27/16 08:44 Consult Discharge Plan - Plan Referrals: David Mendes MD [Primary Care Provider] - (web request)
[2016-12-30] MEDS: *HR* OxyCODONE/APAP 5/325 TABLET PO PRN ×3 (05:00→15:03)
[2016-12-30] MEDS: *HR* Enoxaparin 40 MG/0.4 ML SYRINGE SQ SCH (05:01)
[2016-12-30] MEDS: OXcarbazepine 150 MG TABLET PO SCH (08:03)
[2016-12-30] MEDS: Metoprolol XL (24 HR) Succ 50 MG TAB.ER.24H PO SCH (08:04)
[2016-12-30] MEDS: lamoTRIgine 100 MG TABLET PO SCH (08:04)
[2016-12-30] MEDS: Aspirin 81 MG TAB.CHEW PO SCH (08:04)
[2016-12-30] MEDS: Nicotine 14 MG PATCH.TD24 TD SCH (08:06)
[2016-12-30] MEDS: Insulin LISPRO 300 UNITS/3 ML VIAL SQ SCH ×2 (08:39→11:27)
[2016-12-30 11:11] VITALS: BP 131/80
--- NOTE | 2016-12-30 14:35 | Discharge Summary ---
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 Home Medications: Lamotrigine [Lamictal] 100 mg PO BID 11/29/14 [History] Oxycodone HCl/Acetaminophen [Percocet 5-325 mg Tablet] 1 each PO TID 11/29/14 [ History] Tizanidine [Zanaflex] 4 mg PO TID PRN 11/29/14 [History] Metformin HCl [Glucophage] 1,000 mg PO BIDWM 07/21/15 [History] Aspirin 81 mg PO DAILY #30 tab.chew 10/18/15 [Rx] Clopidogrel [Plavix] 75 mg PO DAILY #30 tablet 10/23/15 [Rx] Atorvastatin Calcium [Lipitor] 80 mg PO HS 07/15/16 [History] Doxepin HCl 100 mg PO HS 07/15/16 [History] Metoprolol Succinate 100 mg PO DAILY 07/15/16 [History] OXcarbazepine [Oxcarbazepine] 300 mg PO BID 07/15/16 [History] Pantoprazole Sodium [Protonix] 40 mg PO DAILY #30 tablet. 12/30/16 [Rx] Allergies/Adverse Reactions: 3 Allergy/AdvReac Type Severity Reaction Status Date / Time cephalexin [From Keflex] Allergy Redness of Verified 10/23/16 12:59 Skin ketorolac [From Toradol] AdvReac Itching Verified 10/23/16 12:59 Procedures/tests Complete & Pending: Procedures Performed prior 72 hours Category Date Time Status US gall bladder [US] Routine Exams 12/28/16 08:00 Completed Date of admission: 12/27/16 12:14 Primary care physician: David Mendes MD Consults: 12/28/16 11:39 Consult to Gastroenterology [CONS] Routine Consulting Provider: Amber Nicholson Reason for Consult: blood in stool Call Completed: Yes 12/29/16 14:19 Consult to Invasive Line Access Team [CONS] Routine Reason for Consult: Poor access Line Type: PICC - Patient Status Disposition: Home, Self-Care Condition: Fair - Discharge Instructions Instructions: Coronary Artery Disease (GEN), Gastrointestinal Bleeding (GEN), Diabetes Mellitus Type 2 in Adults (DC) Follow Up With: David Mendes MD [Primary Care Provider] - 01/03/17 9:45 am (Please follow up as schedule...) Hospital course: Patient is a 41-year-old male with past medical history significant for coronary artery disease, morbid obesity, hypertension and diabetes, who presented to the ER on 12/27/16 with chest pain. Patient reported that the chest pain was interscapular and radiated to his left neck, which were similar symptoms that he had in his previous heart attack. Patient had left heart catheterization in July 2016 and had PTCA of acute in- stent thrombosis in mid LAD, due to noncompliance with Plavix. In addition patient also reported epigastric discomfort and a history of hematochezia. Patient was admitted to the medical floor for ACS rule out and evaluation of hematochezia. During patients hospital stay, his cardiac biomarkers were negative. Nuclear stress test was done and resting ECG demonstrated normal sinus rhythm with possible old anterior lateral infarct. Pharmacological stress ECG was negative for ischemia and no arrhythmias were detected. ACS has been ruled out. Patient with epigastric tenderness in addition to hematochezia. GI was consulted with recommendations for an EGD on 12/29/16 that showed gastritis but no active bleeding; recommendations for PPI for 2 months. On endoscopy on 12/29/16 showed one 3 mm nonbleeding polyp in the sigmoid colon in addition to internal hemorrhoids. Recommendations for repeat colonoscopy in 5 years for surveillance. Patient will be discharged to follow-up with primary care provider. - Time Spent with Patient Total time spent providing and/or coordinating discharge services: Less than 30 minutes - Constitutional Vitals: Temp Pulse Resp BP Pulse Ox 98.1 F 75 17 131/80 92 12/30/16 11:04 12/30/16 11:04 12/30/16 11:04 12/30/16 11:04 12/30/16 11:04 General appearance: Present: A&O X 3, answers questions appropriately - Respiratory Respiratory exam: Present: CTAB. Absent: accessory muscle use, rales, rhonchi, wheezes - Cardiovascular Cardiovascular exam: Present: RRR, +S1, +S2. Absent: diastolic murmur, gallop, rubs, systolic murmur - GI/Abdominal GI/Abdominal exam: Present: tenderness (Epigastric tenderness to palpation)
== END 2016-12-30 15:32 | disposition home or self-care (01) ==
LOC: EMEROO 08:18 → 2ANU 08:18
PROVIDERS: ADMIT Hospitalist; ATTEND Hospitalist
PROC: ENDOEBX (2016-12-29 13:00)
PROC: ENDOCBX (2016-12-29 13:00)

== ENCOUNTER 2018-01-29 14:50 | Observation (INO) ==
--- NOTE | 2018-01-29 15:09 | Emergency Department Note ---
Disposition Clinical Impression: Atypical chest pain Disposition: Admitted As Inpatient Condition: Fair Forms: ED Satisfaction Letter Time of Disposition: 17:32 General Adult HPI - General Chief complaint: ED Chest Pain Stated complaint: head,chest,back pain Time Seen by Provider: 01/29/18 14:52 Source: patient Mode of arrival: ambulatory Limitations: no limitations Nursing Notes Reviewed: Yes Vital Signs Reviewed: Yes - History of Present Illness HPI Narrative: 42 yo male with PMHx of IA and DM presents with chest pain radiating down his left arm for the past 2 hours. He describes it as an ache and says it feels exactly like his previous MIs. He has had 2 cardiac caths and one stent placed. He was walking around during onset of pain and the pain has continued to get worse. Pain Scale: 8 - Related Data Home Medications Medication Instructions Recorded Confirmed Doxepin HCl 100 mg PO DAILY 09/13/17 09/13/17 Metformin HCl [Glucophage] 1,000 mg PO BID 09/13/17 09/13/17 Mirtazapine [Remeron] 15 mg PO HS 09/13/17 09/13/17 Oxycodone HCl/Acetaminophen 1 tab PO QID PRN 09/13/17 09/13/17 [Percocet 7.5-325 mg Tablet] Tizanidine HCl 4 mg PO TID PRN 09/13/17 09/13/17 carBAMazepine [Tegretol Xr] 400 mg PO BID 09/13/17 09/13/17 Allergies Allergy/AdvReac Type Severity Reaction Status Date / Time cephalexin [From Keflex] Allergy Redness of Verified 09/13/17 09:32 Skin ketorolac [From Toradol] AdvReac Itching Verified 09/13/17 09:32 Past Medical History - Past Medical History Medical history: Reports: coronary artery disease, diabetes, GERD, hypertension, migraine, myocardial infarction Surgical history: Reports: angioplasty/stent, appendectomy Psychiatric history: Reports: anxiety, bipolar, depression, panic disorder, PTSD - Social History Smoking Status: Current every day smoker Smokeless Tobacco Status: No Alcohol use: Reports: none Drug use: Reports: none Physical Exam - General Limitations: no limitations General appearance: alert Course Vital Signs Temperature 98.9 F 01/29/18 14:56 Pulse Rate 92 01/29/18 14:56 Respiratory Rate 14 01/29/18 14:56 Blood Pressure 168/87 01/29/18 14:56 O2 Sat by Pulse Oximetry 99 01/29/18 14:56 Temperature 98.9 F 01/29/18 14:56 Pulse Rate 96 01/29/18 17:28 Respiratory Rate 20 01/29/18 17:28 Blood Pressure 184/104 01/29/18 17:28 O2 Sat by Pulse Oximetry 96 01/29/18 17:28 Oxygen Delivery Oxygen Delivery Room Air Medical Decision Making - MDM Narrative Medical decision making narrative: Pt with PMHx of IA presents with chest pain similar to previous MIs. Will do ACS rule out and likely admit to hospitalist pending results. Will also CT head do to severe headache with no Hx of headaches. 1700 - CT head and CXR unremarkable for acute processes. CBC had mildly elevated WBC. BMP and trop wnl. Hospitalist has been paged for further ACS rule out. 0 - Spoke with Dr. Block, admitting hospitalist who has accepted this pt for ACS rule out. - Medical Records Medical records reviewed: Yes I reviewed the patient's medical records. - Lab Data Lab results reviewed: Yes I reviewed the patient's lab results. Result diagrams: 01/29/18 15:10 01/29/18 15:10 Lab Results 01/29/18 01/29/18 Range/Units 15:10 15:10 WBC 12.1 H (4.3-11.1) K/mcL RBC 5.32 (4.19-5.50) M/mcL Hgb 15.6 (12.9-16.9) g/dL Hct 48.0 (37.5-50.1) % MCV 90.2 (83.0-100.0) fL MCH 29.3 (28.0-33.3) pg MCHC 32.5 (31.6-35.5) g/dL RDW 13.0 (11.5-14.5) % Plt Count 263 (140-400) K/mcL MPV 10.3 (9.4-12.4) fL Immature Gran % 0.6 (0-4) % Seg Neutrophils % 71.2 % Lymphocytes % 20.5 % Monocytes % 5.4 % Eosinophils % 1.9 % Basophils % 0.4 % Neutrophils # 8.6 (1.6-8.9) K/mcL Lymphocytes # 2.5 (0.6-4.6) K/mcL Monocytes # 0.7 (0.0-1.3) K/mcL Eosinophils # 0.2 (0.0-0.6) K/mcL Basophils # 0.1 (0.0-0.2) K/mcL Sodium 137 (136-145) mEq/L Potassium 4.0 (3.5-5.1) mEq/L Chloride 98 (98-107) mEq/L Carbon Dioxide 28 (23-29) mEq/L BUN 7 (6-20) mg/dL Creatinine 0.58 L (0.70-1.30) mg/dL Est GFR ( Amer) > 60 (> 60) Est GFR (Non-Af Amer) > 60 (> 60) BUN/Creatinine Ratio 12 (6-26) Glucose 255 H (70-105) mg/dL Calculated Osmolality 291 (280-300) Calcium 9.2 (8.6-10.3) mg/dL Troponin I < 0.03 (< 0.04) ng/mL - Radiology Data Radiology results reviewed: Yes I reviewed the patient's radiology results. - EKG Data EKG #1 EKG attestation: Yes I reviewed and interpreted this EKG. EKG results narrative: EKG done at 1459 on 01/29/2018 HR 95 bpm, [place] interval 146, QRS duration 97, QT 350, QTc 440 Sinus rhythm without any ST segment elevations or depressions. No other signs of acute ischemia. Heart Score - Score History: Moderately Suspicious EKG: Normal Age: Less than 45 Risk Factors: Equal/Greater than 3 risk factor or history of atherosclerotic disease Troponin: Less than normal limit HEART Score Total: 3
[2018-01-29 15:57] LABS: Basophils # 0.1 K/mcL (0.0-0.2); Basophils % 0.4 %; Eosinophils # 0.2 K/mcL (0.0-0.6); Eosinophils % 1.9 %; Hemoglobin 15.6 g/dL (12.9-16.9); Immature Granulocytes % 0.6 % (0-4); Lymphocytes # 2.5 K/mcL (0.6-4.6); Lymphocytes % 20.5 %; Mean Corpuscular HGB Conc 32.5 g/dL (31.6-35.5); Mean Corpuscular Hemoglobin 29.3 pg (28.0-33.3); Mean Corpuscular Volume 90.2 fL (83.0-100.0); Mean Platelet Volume 10.3 fL (9.4-12.4); Monocytes # 0.7 K/mcL (0.0-1.3); Monocytes % 5.4 %; Neutrophils # 8.6 K/mcL (1.6-8.9); Platelet Count 263 K/mcL (140-400); Red Blood Count 5.32 M/mcL (4.19-5.50); Segmented Neutrophils % 71.2 %
[2018-01-29 16:17] LABS: BUN/Creatinine Ratio 12 (6-26); Blood Urea Nitrogen 7 mg/dL (6-20); Calcium 9.2 mg/dL (8.6-10.3); Carbon Dioxide 28 mEq/L (23-29); Chloride 98 mEq/L (98-107); Glucose 255 mg/dL (70-105); Osmolality,Calculated 291 (280-300); Sodium 137 mEq/L (136-145); eGFR For Non-African Americans > 60 (> 60)
[2018-01-29 16:18] LABS: Troponin I < 0.03 ng/mL (< 0.04)
[2018-01-29] MEDS ORDERED: *HR* FentaNYL (PF) 100 MCG/2 ML VIAL IVP ONE (16:18)
[2018-01-29] MEDS ORDERED: Aspirin 325 MG TABLET PO ONE (17:15)
[2018-01-29] MEDS ORDERED: Nitroglycerin 0.4 MG TAB.SUBL SL PRN (17:15)
[2018-01-29] MEDS ORDERED: Ipratropium/Albuterol Neb 3 ML IH ONE (17:15)
[2018-01-29] MEDS ORDERED: Naloxone 0.4 MG/ML INJ IVP PRN (18:42)
[2018-01-29] MEDS ORDERED: *HR* OxyCODONE Immed Rel 15 MG TABLET PO ONE (18:47)
[2018-01-29] MEDS ORDERED: tiZANidine 4 MG TABLET PO ONE (18:48)
[2018-01-29] MEDS: ALPRAZolam 0.5 MG TABLET PO SCH (20:47)
--- NOTE | 2018-01-29 21:26 | Internal Med History&Physical ---
Date of Encounter: 01/29/18 Time of Encounter: 18:00 Internal Medicine - H&P: HPI Chief complaint: ISAAC/CP Admitted From: Home Plans for Post Hospital Care: Home History of present illness: The patient is a 42-year-old male. It was today morning when he developed severe diffuse headache; without nausea or vomiting. It is associated with posterior neck pain. It is dull; not throbbing or pulsating. It was around 1:30 PM when he developed anterior chest pain. Located mostly on the left side; radiating to his left arm. The pain started at resting. Not associated with dyspnea or diaphoresis. He describes his pain as 10 points on 10 point scale. The EMS ambulance brought him to our emergency room around 2:50 PM. The patient had 3 cardiac catheterizations done in the last couple years. The first one done in October 2015 showed severe mid LAD lesion. It was stented with ADRIANO. The patient was diagnosed with an NSTEMI at that time. The second one done in July 2016 showed acute stent thrombosis; likely secondary to noncompliance with medications. The third one was done in September 2017. It showed normal angiographically coronary arteries. He has multiple risk factors for coronary artery disease including morbid obesity (BMI of 61.0), tobacco use, type 2 diabetes mellitus and hypertension. He does have recurrent diffuse headache. However, this one from today seems to be the most severe one. 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 He was seen by a neurologist about 2 weeks ago. He has had underlying bipolar disorder/anxiety. The patient has been under increased amount of stress recently. PAST MEDICAL HX: Coronary artery disease; has NSTEMI in 2015. He is treated for type 2 diabetes mellitus, hypertension, GERD, recurrent headache (likely tension headache) and bipolar disorder/anxiety. He does have chronic pain in the area of right foot/ankle; head severe traumatic injury to that area in 2001. PAST FAMILY HX: See below.. PAST SOCIAL HX: See below.. REVIEW OF SYSTEMS: All 14 organ systems were reviewed by me with the patient. Positive and p ertinent negative findings are listed above. The rest of organ systems is negative. PHYSICAL EXAM: Skin: Free of rash and discoloration. Musculoskeletal: He has a special bracing applied to the right foot/ankle area. Eyes: Sclera is white. There is no discharge from eyes. ENMT: Oral/pharyngeal mucosa is normal in appearance. There is no discharge from nose or ears. Respiratory: Normal breath sounds with no crackles and wheezes bilaterally. CV: Heart is regular with no gallop or murmur. GI: Abdomen is flat and soft with no palpable mass or visceromegaly. : There is no tenderness in patient's flanks bilaterally. Neuro exam: He has good strength in upper and lower extremities. He has normal eye movements. His right upper eyelid his lower then the left one. He has some drooping of right mouth corner. His neck is supple. Psychiatric: He has normal affect. His thought process is appropriate to the situation. ADDITIONAL DATA: His EKG shows normal sinus rhythm; without any abnormalities. CBC and BMP are normal. Troponin is below 0.03. Chest x-ray shows normal findings. CT of head/brain without contrast shows an area of hypoattenuation involving the left occipital lobe, related to the area of chronic stroke (it appears similar when compared to study from 07/21/2015). A/P: Severe headache. It is likely tension headache. I will give him 15 mg of sublingual Roxicodone with 40 mg of Zanaflex. Chest pain. It is likely non-cardiac. We will repeat his troponin. GERD. This may be because of his chest pain. He tells me, that he was diagnosed with esophageal spasm in the past. I will keep him on twice a day Prilosec. Bipolar disorder/anxiety. Will continue his previously used medications for that problem. I will put him on scheduled Xanax. His other problems are mentioned by me above in past medical history. They seem to be stable/under control. Past Med Surg Social Fam HX - Past Medical History Medical history: coronary artery disease, diabetes, GERD, hypertension, migraine, myocardial infarction Additional medical history: chronic R. foot pain Psychiatric history: anxiety, bipolar, depression, panic disorder, PTSD - Past Surgical History Surgical History: angioplasty/stent, appendectomy Additional surgical history: glass taken from back. Stent placement x1. Ear tube s 15x over life span. - Social History Smoking Status: Current every day smoker Smokeless Tobacco Status: No Alcohol use: none Drug use: none - Family History Father Living Status: Still Living Hx Family Cardiac Disorders: Yes Hx Family Respiratory Disorders: No Hx Family Cancer: No Hx Family GI Disorders: No Hx Family Endocrine Disorder: Yes Hx Family Neuromuscular Disorders: No Hx Family Neurologic Disorders: No Hx Family HEENT Disorders: No Hx Family Autoimmune Disorders: No Mother Living Status: Still Living Hx Family Cardiac Disorders: Yes Hx Family Endocrine Disorder: Yes (DM(II)) Hx Family Autoimmune Disorders: Yes Internal Medicine - H&P: Meds Doxepin HCl 200 mg PO DAILY 09/13/17 [History] Metformin HCl [Glucophage] 1,000 mg PO BID 09/13/17 [History] Mirtazapine [Remeron] 15 mg PO HS 09/13/17 [History] Oxycodone HCl/Acetaminophen [Percocet 7.5-325 mg Tablet] 1 tab PO QID PRN 09/13/17 [History] Tizanidine HCl 4 mg PO TID PRN 09/13/17 [History] carBAMazepine [Tegretol Xr] 400 mg PO BID 09/13/17 [History] Atorvastatin [Lipitor] 40 mg PO HS 01/29/18 [History] Pantoprazole Sodium 80 mg PO DAILY 01/29/18 [History] Allergy/AdvReac Type Severity Reaction Status Date / Time cephalexin [From Keflex] Allergy Redness of Verified 09/13/17 09:32 Skin ketorolac [From Toradol] AdvReac Itching Verified 09/13/17 09:32 - Constitutional Vitals: Temp Pulse Resp BP Pulse Ox 98.7 F 93 16 170/95 101 01/29/18 19:09 01/29/18 19:09 01/29/18 19:09 01/29/18 19:09 01/29/18 19:09 General appearance: Present: A&O X 3, answers questions appropriately Exam: xx Internal Med - H&P Results - Labs CBC & Chem 7: 01/29/18 15:10 01/29/18 15:10 Labs: Short CBC 01/29/18 Range/Units 15:10 WBC 12.1 H (4.3-11.1) K/mcL Hgb 15.6 (12.9-16.9) g/dL Hct 48.0 (37.5-50.1) % Plt Count 263 (140-400) K/mcL Neutrophils # 8.6 (1.6-8.9) K/mcL BMP 01/29/18 15:10 Sodium 137 Potassium 4.0 Chloride 98 Carbon Dioxide 28 BUN 7 Creatinine 0.58 L Glucose 255 H Calcium 9.2 Cardiac Enzymes 01/29/18 Range/Units 15:10 Troponin I < 0.03 (< 0.04) ng/mL - Impressions ITS Impressions Chest X-Ray 01/29/18 15:05 IMPRESSION: No significant findings in the chest. D/ / José Antonio Marr MD / José Antonio Marr MD Interpreting Provider: José Antonio Marr MD Head CT 01/29/18 15:09 IMPRESSION: 1. Area of hypoattenuation is seen involving the left occipital lobe related to area of chronic stroke and appears similar compared to prior. 2. No acute intracranial hemorrhage or edema. D/ / Amadou Lee / Amadou Lee Interpreting Provider: Amadou Lee - Assessment and plan (1) Headache Current Visit: Yes Status: Acute Qualifiers: Headache type: tension-type Headache chronicity pattern: acute headache Intractability: intractable Qualified Code(s): G44.201 - Tension-type headache, unspecified, intractable (2) Chest pain Current Visit: No Status: Acute Qualifiers: Chest pain type: other chest pain Qualified Code(s): R07.89 - Other chest pain; R07.8 - Other chest pain (3) Coronary artery disease Current Visit: No Status: Chronic Qualifiers: Coronary Disease-Associated Artery/Lesion type: [place] artery [place] vs. transplanted heart: [place] heart Associated angina: without angina Qualified Code(s): I25.10 - Atherosclerotic heart disease of [place] coronary artery without angina pectoris (4) GERD (gastroesophageal reflux disease) Current Visit: Yes Status: Acute Qualifiers: Esophagitis presence: esophagitis presence not specified Qualified Code(s): K21.9 - Gastro-esophageal reflux disease without esophagitis (5) Bipolar disorder Current Visit: No Status: Chronic Qualifiers: Active/Remission status: remission status unspecified Qualified Code(s): F31.9 - Bipolar disorder, unspecified (6) Anxiety Current Visit: No Status: Chronic - Time Spent With Patient Total time spent is greater than 50% in coordination of care (as documented) at patient's floor/unit and/or counseling patient: 25 - 35 minutes
[2018-01-29] MEDS ORDERED: tiZANidine 4 MG TABLET PO PRN (22:08)
[2018-01-29] MEDS ORDERED: Acetaminophen IV 1,000 MG/100 ML INFUS..BTL IVPB ONE (22:13)
[2018-01-29] MEDS ORDERED: Dextrose Gel 15 GM/37.5 ML TUBE PO PRN ×2 (22:15)
[2018-01-29] MEDS ORDERED: *HR* Dextrose 50 % in Water (Syg) 50 ML SYRINGE IVP PRN (22:15)
[2018-01-29] MEDS ORDERED: Insulin LISPRO 300 UNITS/3 ML VIAL SQ SCH (22:15)
[2018-01-29] MEDS ORDERED: Mirtazapine 15 MG TABLET PO SCH (22:15)
[2018-01-29] MEDS ORDERED: D5% in Water 1,000 ML IVC PRN (22:15)
[2018-01-29] MEDS: CarBAMazepine XR (12 hr) 100 MG TAB PO SCH (23:27)
[2018-01-30] MEDS ORDERED: *HR* LORazepam 2 MG/ML VIAL IVP ONE (01:21)
[2018-01-30] MEDS: *HR* OxyCODONE/APAP 7.5/325 TABLET PO PRN ×2 (02:01→08:08)
[2018-01-30 07:02] VITALS: BP 164/85
[2018-01-30] MEDS ORDERED: Insulin LISPRO 300 UNITS/3 ML VIAL SQ SCH (07:30)
[2018-01-30] MEDS: ALPRAZolam 0.5 MG TABLET PO SCH (08:03)
[2018-01-30] MEDS: CarBAMazepine XR (12 hr) 100 MG TAB PO SCH (08:04)
--- NOTE | 2018-01-30 08:19 | Internal Med Progress Note ---
Hospitalist Progress Note - Encounter Date of Encounter: 01/30/18 Time of Encounter: 08:17 - Subjective Interval History: Seen examined at bedside this morning. Patient denies any chest pain does endorse a mild headache but reports that this has been improving since admission. - Exam Vitals: Temp Pulse Resp BP Pulse Ox 97.3 F L 99 16 164/85 93 01/30/18 07:01 01/30/18 07:01 01/30/18 07:01 01/30/18 07:01 01/30/18 07:01 Exam: PHYSICAL EXAMINATION: GENERAL:NAD, A&OX3 HEENT: Head is normocephalic and atraumatic. Extraocular muscles are intact. Pupils are equal, round, and reactive to light and accommodation. NECK: Atraumatic, Supple. No carotid bruits. No lymphadenopathy or thyromegaly. LUNGS: Clear to auscultation B/L AP and L. HEART: Regular rate and rhythm, S1, S2 without murmur. ABDOMEN: Soft, nontender, and nondistended. Positive bowel sounds. No hepatosplenomegaly was noted. EXTREMITIES: Without any cyanosis, clubbing, rash, lesions or edema. NEUROLOGIC: Cranial nerves II through XII are grossly intact. PSYCHIATRIC: Appropriate affect, denies SI/HI, without agitation or anxiety SKIN: No ulceration or induration present. - Assessment and Plan (1) Chest pain Current Visit: No Status: Acute Assessment and Plan: Significant CAD NSTEMI-[facility] 2015 with PTCA to LAD July 2016 S/P PTCA with acute stent thrombosis LAD due to Plavix noncompliance [facility] 09/20 coronary arteries are angiographically normal Presents with left-sided chest pain with radiation to left arm rated 10/10 Initial troponin negative No ECG changes concerning for ischemia noted on admission Repeat troponin pending No events on telemetry overnight Patient reports chest pain has resolved Chest pain is likely not cardiac related. He does also endorse a history of esophageal spasms and reports similar presentation. Given quick resolution of symptoms without further intervention consider GERD/and/or esophageal spasms as cause With resolution of symptoms, consider discharge this afternoon pending repeat troponin (2) Coronary artery disease Current Visit: No Status: Chronic Assessment and Plan: Continue cardiac medications; patient reports that he does not take Plavix (3) Anxiety Current Visit: No Status: Chronic Assessment and Plan: Does not appear anxious at this time Continue home anxiolytic (4) Bipolar disorder Current Visit: No Status: Chronic Assessment and Plan: Continue bipolar medications (5) Headache Current Visit: Yes Status: Acute Assessment and Plan: Headache is persistent however is improving Most likely tension headache With improvement, consider discharge this afternoon (6) GERD (gastroesophageal reflux disease) Current Visit: Yes Status: Acute Assessment and Plan: Continue PPI DVT Prophylaxis: Increase activity - Time Spent with Patient Total time spent is greater than 50% in coordination of care (as documented) at patient's floor/unit and/or counseling patient: less than 15 minutes Plan of Care Discussed with: patient Internal Medicine: Result - Labs CBC & Chem 7: 01/29/18 15:10 01/29/18 15:10 Labs: Short CBC 01/29/18 Range/Units 15:10 WBC 12.1 H (4.3-11.1) K/mcL Hgb 15.6 (12.9-16.9) g/dL Hct 48.0 (37.5-50.1) % Plt Count 263 (140-400) K/mcL Neutrophils # 8.6 (1.6-8.9) K/mcL BMP 01/29/18 15:10 Sodium 137 Potassium 4.0 Chloride 98 Carbon Dioxide 28 BUN 7 Creatinine 0.58 L Glucose 255 H Calcium 9.2 Cardiac Enzymes 01/29/18 Range/Units 15:10 Troponin I < 0.03 (< 0.04) ng/mL - Impressions Impressions Chest X-Ray 01/29/18 15:05 IMPRESSION: No significant findings in the chest. D/ / José Antonio Marr MD / José Antonio Marr MD Interpreting Provider: José Antonio Marr MD Head CT 01/29/18 15:09 IMPRESSION: 1. Area of hypoattenuation is seen involving the left occipital lobe related to area of chronic stroke and appears similar compared to prior. 2. No acute intracranial hemorrhage or edema. D/ / Amadou Lee / Amadou Lee Interpreting Provider: Amadou Lee Consult Discharge Plan - Plan Referrals: David Mendes MD [Primary Care Provider] - 02/05/18 1:15 pm Gerber Amato DO [Partnered Physician] - 02/05/18 9:15 am (1) Chest pain Qualifiers: Chest pain type: other chest pain Qualified Code(s): R07.89 - Other chest pain; R07.8 - Other chest pain (2) Coronary artery disease Qualifiers: Coronary Disease-Associated Artery/Lesion type: [place] artery [place] vs. transplanted heart: [place] heart Associated angina: without angina Qualified Code(s): I25.10 - Atherosclerotic heart disease of [place] coronary artery without angina pectoris (4) Bipolar disorder Qualifiers: Active/Remission status: remission status unspecified Qualified Code(s): F31.9 - Bipolar disorder, unspecified (5) Headache Qualifiers: Headache type: tension-type Headache chronicity pattern: acute headache Intractability: intractable Qualified Code(s): G44.201 - Tension-type headache, unspecified, intractable (6) GERD (gastroesophageal reflux disease) Qualifiers: Esophagitis presence: esophagitis presence not specified Qualified Code(s): K21.9 - Gastro-esophageal reflux disease without esophagitis
[2018-01-30] MEDS ORDERED: PANTOPRAZOLE SODIUM 80 MG PO SCH (09:00)
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
== END 2018-01-30 12:05 | disposition home or self-care (01) ==
LOC: EMEROOARM 14:50 → 3BNU 14:50 → SUATTDRO 17:42 → 3BNU 18:14
PROVIDERS: ADMIT Hospitalist; ATTEND Nurse Practitioner

== ENCOUNTER 2019-10-15 16:56 | Observation (INO) ==
[2019-10-15] MEDS ORDERED: Isovue-370 500 ML BOTTLE IVP ONE (17:10)
[2019-10-15 17:25] LABS: Hematocrit 45.2 % (37.5-50.1); Hemoglobin 14.3 g/dL (12.9-16.9); Mean Corpuscular HGB Conc 31.6 g/dL (31.6-35.5); Mean Corpuscular Hemoglobin 29.1 pg (28.0-33.3); Mean Corpuscular Volume 92.1 fL (83.0-100.0); Mean Platelet Volume 9.9 fL (9.4-12.4); Platelet Count 234 K/mcL (140-400); Red Blood Count 4.91 M/mcL (4.19-5.50); Red Cell Distribution Width 13.9 % (11.5-14.5)
[2019-10-15 17:41] LABS: INR 1.1; Prothrombin Time 12.2 Seconds (9.4-12.1)
[2019-10-15 17:42] LABS: BUN/Creatinine Ratio 13 (6-26); Blood Urea Nitrogen 9 mg/dL (6-20); Calcium 9.3 mg/dL (8.6-10.3); Carbon Dioxide 30 mEq/L (23-29); Chloride 95 mEq/L (98-107); Glucose 246 mg/dL (70-105); Osmolality,Calculated 279 (280-300); Potassium 4.7 mEq/L (3.5-5.1); Sodium 131 mEq/L (136-145); eGFR For African Americans > 60 (> 60); eGFR For Non-African Americans > 60 (> 60)
[2019-10-15 17:43] LABS: Activated Partial Thrombo Time 33.9 Seconds (26.0-36.0)
[2019-10-15] MEDS ORDERED: Morphine Sulfate 2 MG/ML SYRINGE IVP STA (17:46)
[2019-10-15] MEDS ORDERED: 0.9 % Sodium Chloride 1,000 ML IVC ONE (17:46)
[2019-10-15] MEDS ORDERED: Aspirin 81 MG TAB.CHEW PO STA (17:46)
[2019-10-15 18:57] LABS: Troponin I < 0.03 ng/mL (< 0.04)
[2019-10-15] MEDS ORDERED: tiZANidine 4 MG TABLET PO PRN (19:24)
[2019-10-15] MEDS ORDERED: Acetaminophen 325 MG TABLET PO PRN (19:56)
[2019-10-15] MEDS: Gabapentin 300 MG CAPSULE PO SCH (20:47)
[2019-10-15] MEDS: CarBAMazepine XR (12 hr) 100 MG TAB PO SCH (20:47)
[2019-10-15] MEDS ORDERED: Mirtazapine 15 MG TABLET PO SCH (21:00)
[2019-10-15] MEDS ORDERED: Perflutren Lipid Microsphere 1.3 ML in 0.9 % Sodium Chloride 8.7 ML IVP PRN (21:17)
[2019-10-15 23:25] LABS: Adenovirus Not Detected (Not Detect); Coronavirus 229E Not Detected (Not Detect); Coronavirus HKU1 Not Detected (Not Detect); Coronavirus NL63 Not Detected (Not Detect); Coronavirus OC43 Not Detected (Not Detect)
[2019-10-15 23:26] LABS: Bordetella Pertussis Not Detected (Not Detect); Chlamydophila pneumoniae Not Detected (Not Detect); Human Metapneumovirus Not Detected (Not Detect); Human Rhinovirus/Enterovirus Not Detected (Not Detect); Influenza A Subtype 2009 H1 Not Detected (Not Detect); Influenza B Not Detected (Not Detect); Mycoplasma pneumoniae Not Detected (Not Detect); Parainfluenza Virus 1 Not Detected (Not Detect); Parainfluenza Virus 2 Not Detected (Not Detect); Parainfluenza Virus 3 Not Detected (Not Detect); Parainfluenza Virus 4 Not Detected (Not Detect); Respiratory Syncytial Virus Not Detected (Not Detect)
[2019-10-15] MEDS: *HR* OxyCODONE/APAP 7.5/325 TABLET PO PRN (23:56)
[2019-10-16 00:17] LABS: Bilirubin,Urine Negative (Negative); Blood,Urine Negative (Negative); Clarity,Urine Clear (Clear); Color,Urine Light-Yellow (Yellow); Glucose,Urine (UA) Normal (Normal); Ketones,Urine Negative (Negative); Leukocyte Esterase,Urine Negative (Negative); Nitrite,Urine Negative (Negative); Protein,Urine 50 mg/dL (Neg-Trace); RBC,Urine 0-3 per hpf (0-3); Specific Gravity,Urine > 1.030 (1.010-1.025); Squamous Epithelial Cell,Urine Few per hpf (None-Few); Urobilinogen,Urine Normal (Normal); WBC,Urine 0-3 per hpf (0-3)
[2019-10-16 00:23] LABS: Amphetamine Screen,Urine Negative ng/mL (Cutoff=1000); Barbiturate Screen,Urine Negative ng/mL (Cutoff=200); Benzodiazepines Screen,Urine Negative ng/mL (Cutoff=200); Cannabinoid Screen,Urine Negative ng/mL (Cutoff = 50); Cocaine Screen,Urine Negative ng/mL (Cutoff= 300); Opiate Screen,Urine Positive ng/mL (Cutoff=300); Phencyclidine Screen,Urine Negative ng/mL (Cutoff=25)
[2019-10-16] MEDS ORDERED: Dextrose Gel 15 GM/37.5 ML TUBE PO PRN ×2 (01:27)
[2019-10-16] MEDS ORDERED: *HR* Dextrose 50 % in Water (Vial) 50 ML VIAL IVP PRN (01:27)
[2019-10-16] MEDS ORDERED: D5% in Water 1,000 ML IVC PRN (01:27)
[2019-10-16] MEDS: Insulin LISPRO 300 UNITS/3 ML VIAL SQ SCH ×3 (02:36→13:14)
[2019-10-16] MEDS: *HR* OxyCODONE/APAP 7.5/325 TABLET PO PRN ×3 (04:39→13:14)
[2019-10-16 05:47] LABS: INR 1.1; Prothrombin Time 12.4 Seconds (9.4-12.1)
[2019-10-16 05:51] LABS: Activated Partial Thrombo Time 32.3 Seconds (26.0-36.0)
[2019-10-16 06:00] LABS: Alanine Aminotransferase 14 Units/L (7-52); Albumin 3.7 g/dL (3.5-5.7); Albumin/Globulin Ratio 1.2 (1.1-2.2); Alkaline Phosphatase 75 Units/L (34-104); Aspartate Amino Transferase 14 Units/L (13-39); BUN/Creatinine Ratio 16 (6-26); Bilirubin,Total 0.4 mg/dL (0.3-1.0); Blood Urea Nitrogen 9 mg/dL (6-20); Calcium 9.2 mg/dL (8.6-10.3); Carbon Dioxide 27 mEq/L (23-29); Chloride 95 mEq/L (98-107); Chol/HDL Ratio 5.4 (0-4.9); Cholesterol 161 mg/dL (< 200); Glucose 143 mg/dL (70-105); HDL Cholesterol 30 mg/dL (40-59); LDL Cholesterol,Calculated 87 mg/dL (< 100); Osmolality,Calculated 275 (280-300); Potassium 4.2 mEq/L (3.5-5.1); Sodium 132 mEq/L (136-145); Total Protein 6.7 g/dL (6.4-8.9); Triglycerides 218 mg/dL (< 150); Troponin I < 0.03 ng/mL (< 0.04); eGFR For African Americans > 60 (> 60); eGFR For Non-African Americans > 60 (> 60)
[2019-10-16] MEDS: *HR* LORazepam 2 MG/ML VIAL IVP ONE ×2 (07:30→07:39)
[2019-10-16] MEDS: CarBAMazepine XR (12 hr) 100 MG TAB PO SCH (08:46)
[2019-10-16] MEDS: Gabapentin 300 MG CAPSULE PO SCH ×2 (08:46→15:57)
[2019-10-16 08:48] LABS: Estimated Average Glucose 186 mg/dl
[2019-10-16] MEDS ORDERED: Metoprolol XL (24 HR) Succ 25 MG TAB.ER.24H PO SCH (09:00)
[2019-10-16] MEDS ORDERED: *HR* LORazepam 2 MG/ML VIAL IVP PRN (13:03)
[2019-10-16] MEDS ORDERED: *HR* LORazepam 2 MG/ML VIAL IVP ONE (14:11)
[2019-10-16 16:47] VITALS: BP 156/82
== END 2019-10-16 16:53 | disposition home or self-care (01) ==
LOC: EMEROOARM 16:56 → 3BNU 16:56 → SUATTDRO 18:54 → 3BNU 18:59
PROVIDERS: ADMIT Internal Medicine; ATTEND Internal Medicine

== ENCOUNTER 2020-06-08 11:10 | Observation (INO) ==
[2020-06-08] MEDS ORDERED: Isovue-370 500 ML BOTTLE IVP ONE (11:19)
[2020-06-08 11:29] LABS: Hematocrit 51.2 % (37.5-50.1); Hemoglobin 16.7 g/dL (12.9-16.9); Mean Corpuscular HGB Conc 32.6 g/dL (31.6-35.5); Mean Corpuscular Hemoglobin 30.3 pg (28.0-33.3); Mean Corpuscular Volume 92.9 fL (83.0-100.0); Mean Platelet Volume 9.5 fL (9.4-12.4); Platelet Count 243 K/mcL (140-400); Red Blood Count 5.51 M/mcL (4.19-5.50); White Blood Count 11.4 K/mcL (4.3-11.1)
[2020-06-08 11:40] LABS: Prothrombin Time 11.8 Seconds (9.4-12.1)
[2020-06-08 11:43] LABS: Activated Partial Thrombo Time 30.8 Seconds (26.0-36.0)
[2020-06-08 11:47] LABS: BUN/Creatinine Ratio 13 (6-26); Blood Urea Nitrogen 8 mg/dL (6-20); Calcium 9.9 mg/dL (8.6-10.3); Carbon Dioxide 30 mEq/L (23-29); Chloride 92 mEq/L (98-107); Glucose 136 mg/dL (70-105); Osmolality,Calculated 270 (280-300); Potassium 4.7 mEq/L (3.5-5.1); Sodium 130 mEq/L (136-145); Troponin I < 0.03 ng/mL (< 0.04); eGFR For African Americans > 60 (> 60); eGFR For Non-African Americans > 60 (> 60)
[2020-06-08] MEDS ORDERED: *HR* HYDROmorphone (PF) 1 MG/ML SYRINGE IVP ONE (11:50)
[2020-06-08] MEDS ORDERED: Vancomycin 2,000 MG/520 ML IV.SOLN IVPB ONE (12:00)
[2020-06-08] MEDS ORDERED: Naloxone 0.4 MG/ML INJ IVP PRN (13:11)
[2020-06-08] MEDS ORDERED: D5% in Water 1,000 ML IVC PRN (13:15)
[2020-06-08] MEDS ORDERED: Dextrose Gel 15 GM/37.5 ML TUBE PO PRN ×2 (13:15)
[2020-06-08] MEDS ORDERED: *HR* Dextrose 50 % in Water (Vial) 50 ML VIAL IVP PRN (13:15)
[2020-06-08] MEDS: Insulin LISPRO 300 UNITS/3 ML VIAL SUBQ SCH (16:23)
[2020-06-08] MEDS ORDERED: *HR* OxyCODONE/APAP 7.5/325 TABLET PO PRN (16:51)
[2020-06-08] MEDS ORDERED: *HR* LORazepam 2 MG/ML VIAL IVP PRN (16:55)
[2020-06-08 18:30] LABS: C-Reactive Protein 41 mg/L (Less than 10)
[2020-06-08 18:49] LABS: Estimated Average Glucose 177 mg/dl; Hemoglobin A1C 7.8 %
[2020-06-08] MEDS ORDERED: Insulin LISPRO 300 UNITS/3 ML VIAL SUBQ SCH (21:00)
[2020-06-09] MEDS ORDERED: *HR* LORazepam 2 MG/ML VIAL IVP ONE (04:50)
[2020-06-09] MEDS ORDERED: *HR* LORazepam 2 MG/ML VIAL ONE (05:26)
[2020-06-09 06:01] LABS: Basophils % 0.4 %; Eosinophils # 0.3 K/mcL (0.0-0.6); Eosinophils % 2.6 %; Hematocrit 44.6 % (37.5-50.1); Hemoglobin 14.4 g/dL (12.9-16.9); Immature Granulocytes % 0.3 % (0-4); Lymphocytes # 1.8 K/mcL (0.6-4.6); Lymphocytes % 16.4 %; Mean Corpuscular HGB Conc 32.3 g/dL (31.6-35.5); Mean Corpuscular Hemoglobin 29.3 pg (28.0-33.3); Mean Corpuscular Volume 90.7 fL (83.0-100.0); Mean Platelet Volume 10.1 fL (9.4-12.4); Monocytes # 0.8 K/mcL (0.0-1.3); Monocytes % 7.6 %; Platelet Count 225 K/mcL (140-400); Red Blood Count 4.92 M/mcL (4.19-5.50); Segmented Neutrophils % 72.7 %
[2020-06-09 06:24] LABS: BUN/Creatinine Ratio 18 (6-26); Blood Urea Nitrogen 11 mg/dL (6-20); Calcium 9.1 mg/dL (8.6-10.3); Carbon Dioxide 26 mEq/L (23-29); Chloride 95 mEq/L (98-107); Glucose 149 mg/dL (70-105); Osmolality,Calculated 272 (280-300); Potassium 4.6 mEq/L (3.5-5.1); Sodium 130 mEq/L (136-145); eGFR For African Americans > 60 (> 60); eGFR For Non-African Americans > 60 (> 60)
[2020-06-09 06:54] VITALS: BP 169/96
[2020-06-09] MEDS ORDERED: tiZANidine 4 MG TABLET PO PRN (07:18)
[2020-06-09] MEDS: Insulin LISPRO 300 UNITS/3 ML VIAL SUBQ SCH (08:22)
[2020-06-09] MEDS ORDERED: Piperacillin/Tazobactam 3.375 GM in 0.9 % Sodium Chloride Mini Bag 100 ML IVPB SCH (08:41)
[2020-06-09] MEDS ORDERED: CarBAMazepine XR (12 hr) 100 MG TAB PO SCH (09:00)
[2020-06-09] MEDS ORDERED: Aspirin Enteric Coated 81 MG Tablet PO SCH (09:00)
[2020-06-09] MEDS ORDERED: Gabapentin 300 MG CAPSULE PO SCH (09:00)
[2020-06-09] MEDS ORDERED: Metoprolol XL (24 HR) Succ 25 MG TAB.ER.24H PO SCH (09:00)
[2020-06-09] MEDS ORDERED: Mirtazapine 15 MG TABLET PO SCH (21:00)
== END 2020-06-09 11:14 | disposition left against medical advice (07) ==
LOC: EMEROOARM 11:10 → 3BNU 11:10 → SUATTDRO 12:52 → 3BNU 13:40
PROVIDERS: ADMIT Internal Medicine; ATTEND Internal Medicine

== ENCOUNTER 2020-12-22 12:05 | Inpatient (IN) ==
[2020-12-22 16:46] LABS: BUN/Creatinine Ratio 6 (6-26); Blood Urea Nitrogen 3 mg/dL (6-20); Calcium 8.6 mg/dL (8.6-10.3); Carbon Dioxide 34 mEq/L (23-29); Chloride 87 mEq/L (98-107); Glucose 153 mg/dL (70-105); Osmolality,Calculated 260 (280-300); Potassium 4.3 mEq/L (3.5-5.1); Sodium 125 mEq/L (136-145); eGFR For African Americans > 60 (> 60); eGFR For Non-African Americans > 60 (> 60)
[2020-12-22 16:48] LABS: Basophils % 0.2 %; Eosinophils # 0.2 K/mcL (0.0-0.6); Eosinophils % 1.8 %; Hematocrit 35.4 % (37.5-50.1); Hemoglobin 11.5 g/dL (12.9-16.9); Immature Granulocytes % 0.4 % (0-4); Lymphocytes # 1.4 K/mcL (0.6-4.6); Lymphocytes % 11.7 %; Mean Corpuscular HGB Conc 32.5 g/dL (31.6-35.5); Mean Corpuscular Hemoglobin 28.3 pg (28.0-33.3); Mean Corpuscular Volume 87.2 fL (83.0-100.0); Mean Platelet Volume 9.6 fL (9.4-12.4); Monocytes # 0.8 K/mcL (0.0-1.3); Monocytes % 6.3 %; Neutrophils # 9.8 K/mcL (1.6-8.9); Platelet Count 331 K/mcL (140-400); Red Blood Count 4.06 M/mcL (4.19-5.50); Segmented Neutrophils % 79.6 %; White Blood Count 12.4 K/mcL (4.3-11.1)
[2020-12-22] MEDS ORDERED: Piperacillin/Tazobactam 3.375 GM in 0.9 % Sodium Chloride Mini Bag 100 ML IVPB ONE (17:39)
[2020-12-22] MEDS ORDERED: Vancomycin 2,000 MG/520 ML IV.SOLN IVPB ONE (18:00)
[2020-12-22] MEDS ORDERED: Dextrose Gel 15 GM/37.5 ML TUBE PO PRN ×2 (21:28)
[2020-12-22] MEDS ORDERED: D5% in Water 1,000 ML IVC PRN (21:28)
[2020-12-22] MEDS ORDERED: *HR* Dextrose 50 % in Water (Syg) 50 ML SYRINGE IVP PRN (21:28)
[2020-12-22] MEDS: Insulin LISPRO 300 UNITS/3 ML VIAL SUBQ SCH (22:13)
[2020-12-22] MEDS ORDERED: DOXEPIN HCL 75 MG PO SCH (22:15)
[2020-12-22] MEDS ORDERED: Ondansetron 4 MG/2 ML VIAL IVP PRN (22:18)
[2020-12-22] MEDS ORDERED: Naloxone 0.4 MG/ML INJ IVP PRN (22:18)
[2020-12-22] MEDS ORDERED: Acetaminophen 325 MG TABLET PO PRN (22:18)
[2020-12-22] MEDS: Gabapentin 400 MG CAPSULE PO SCH (23:13)
[2020-12-22] MEDS: *HR* OxyCODONE/APAP 7.5/325 TABLET PO PRN (23:14)
[2020-12-22] MEDS: Mirtazapine 15 MG TABLET PO SCH (23:14)
[2020-12-23] MEDS: 0.9 % Sodium Chloride 1,000 ML IVC SCH ×3 (00:44→21:06)
[2020-12-23] MEDS: Piperacillin/Tazobactam 3.375 GM in 0.9 % Sodium Chloride Mini Bag 100 ML IVPB SCH ×3 (00:45→18:54)
[2020-12-23 05:03] LABS: Hemoglobin 11.5 g/dL (12.9-16.9); Mean Corpuscular HGB Conc 32.9 g/dL (31.6-35.5); Mean Corpuscular Hemoglobin 28.5 pg (28.0-33.3); Mean Corpuscular Volume 86.8 fL (83.0-100.0); Mean Platelet Volume 9.3 fL (9.4-12.4); Platelet Count 321 K/mcL (140-400); Red Blood Count 4.03 M/mcL (4.19-5.50); White Blood Count 10.3 K/mcL (4.3-11.1)
[2020-12-23 05:09] LABS: INR 1.4; Prothrombin Time 15.6 Seconds (9.4-12.1)
[2020-12-23 05:12] LABS: Activated Partial Thrombo Time 30.7 Seconds (26.0-36.0)
[2020-12-23] MEDS: *HR* Heparin 5,000 UNIT/ML VIAL SQ SCH ×3 (05:20→21:07)
[2020-12-23 05:22] LABS: BUN/Creatinine Ratio 6 (6-26); Blood Urea Nitrogen 4 mg/dL (6-20); Calcium 8.7 mg/dL (8.6-10.3); Carbon Dioxide 31 mEq/L (23-29); Chloride 91 mEq/L (98-107); Chol/HDL Ratio 3.1 (0-4.9); Cholesterol 109 mg/dL (< 200); Glucose 132 mg/dL (70-105); HDL Cholesterol 35 mg/dL (40-59); LDL Cholesterol,Calculated 58 mg/dL (< 100); Magnesium 1.5 mg/dL (1.6-2.6); Osmolality,Calculated 267 (280-300); Potassium 3.9 mEq/L (3.5-5.1); Sodium 129 mEq/L (136-145); Triglycerides 79 mg/dL (< 150); eGFR For African Americans > 60 (> 60); eGFR For Non-African Americans > 60 (> 60)
[2020-12-23 05:25] LABS: % Iron Saturation 10 % (20-55); Iron 27 mcg/dL (65-175); Transferrin 196 mg/dL (203-362)
[2020-12-23 05:31] LABS: Estimated Average Glucose 151 mg/dl; Hemoglobin A1C 6.9 %
[2020-12-23 05:42] LABS: Ferritin 237 ng/mL (20-250)
[2020-12-23 05:47] LABS: Folate 6.5 ng/mL (3.0-16.0)
[2020-12-23] MEDS: Insulin LISPRO 300 UNITS/3 ML VIAL SUBQ SCH ×4 (07:33→21:05)
[2020-12-23] MEDS ORDERED: NON-FORMULARY MEDICATION 1 EACH EACH (Pantoprazole Sodium [Protonix] 40 MG Tablet.Dr) PO SCH (09:00)
[2020-12-23] MEDS: CarBAMazepine XR (12 hr) 100 MG TAB PO SCH ×2 (09:24→21:05)
[2020-12-23] MEDS: Metoprolol XL (24 HR) Succ 50 MG TAB.ER.24H PO SCH (09:24)
[2020-12-23] MEDS: Aspirin Enteric Coated 81 MG Tablet PO SCH (09:24)
[2020-12-23] MEDS: Gabapentin 400 MG CAPSULE PO SCH ×3 (09:24→21:05)
[2020-12-23] MEDS: amLODIPine 5 MG TABLET PO SCH (09:24)
[2020-12-23] MEDS: Vancomycin 1,750 MG/517.5 ML IV.SOLN IVPB SCH ×2 (09:25→21:06)
[2020-12-23] MEDS: *HR* OxyCODONE/APAP 7.5/325 TABLET PO PRN ×3 (09:27→21:13)
[2020-12-23] MEDS: tiZANidine 4 MG TABLET PO PRN (11:30)
[2020-12-23] MEDS ORDERED: Iron Sucrose Complex 400 MG in 0.9 % Sodium Chloride 250 ML IVPB ONE (14:45)
[2020-12-23] MEDS: Mirtazapine 15 MG TABLET PO SCH (21:05)
[2020-12-24] MEDS: Piperacillin/Tazobactam 3.375 GM in 0.9 % Sodium Chloride Mini Bag 100 ML IVPB SCH ×4 (00:44→23:07)
[2020-12-24 03:18] LABS: C-Reactive Protein 161 mg/L (Less than 10)
[2020-12-24] MEDS: *HR* Heparin 5,000 UNIT/ML VIAL SQ SCH ×3 (05:09→20:19)
[2020-12-24 07:40] LABS: Basophils % 0.5 %; Eosinophils # 0.4 K/mcL (0.0-0.6); Eosinophils % 4.7 %; Hematocrit 34.2 % (37.5-50.1); Immature Granulocytes % 0.2 % (0-4); Lymphocytes # 1.8 K/mcL (0.6-4.6); Mean Corpuscular HGB Conc 32.2 g/dL (31.6-35.5); Mean Corpuscular Hemoglobin 28.7 pg (28.0-33.3); Mean Corpuscular Volume 89.3 fL (83.0-100.0); Monocytes # 0.8 K/mcL (0.0-1.3); Monocytes % 10.5 %; Platelet Count 308 K/mcL (140-400); Red Blood Count 3.83 M/mcL (4.19-5.50); Red Cell Distribution Width 14.4 % (11.5-14.5); Segmented Neutrophils % 62.1 %
[2020-12-24] MEDS: Insulin LISPRO 300 UNITS/3 ML VIAL SUBQ SCH ×4 (07:52→19:51)
[2020-12-24] MEDS: Metoprolol XL (24 HR) Succ 50 MG TAB.ER.24H PO SCH (08:04)
[2020-12-24] MEDS: *HR* OxyCODONE/APAP 7.5/325 TABLET PO PRN ×4 (08:04→23:06)
[2020-12-24] MEDS: Gabapentin 400 MG CAPSULE PO SCH ×3 (08:04→20:20)
[2020-12-24] MEDS: CarBAMazepine XR (12 hr) 100 MG TAB PO SCH ×2 (08:04→20:20)
[2020-12-24] MEDS: Aspirin Enteric Coated 81 MG Tablet PO SCH (08:04)
[2020-12-24] MEDS: amLODIPine 5 MG TABLET PO SCH (08:04)
[2020-12-24] MEDS: 0.9 % Sodium Chloride 1,000 ML IVC SCH (08:05)
[2020-12-24 08:06] LABS: BUN/Creatinine Ratio 11 (6-26); Blood Urea Nitrogen 6 mg/dL (6-20); Calcium 8.6 mg/dL (8.6-10.3); Carbon Dioxide 31 mEq/L (23-29); Chloride 101 mEq/L (98-107); Glucose 124 mg/dL (70-105); Magnesium 1.9 mg/dL (1.6-2.6); Osmolality,Calculated 279 (280-300); Potassium 4.4 mEq/L (3.5-5.1); Sodium 135 mEq/L (136-145); eGFR For African Americans > 60 (> 60); eGFR For Non-African Americans > 60 (> 60)
[2020-12-24 08:54] LABS: Platelet Estimate Normal (Normal); Reactive Lymphocytes Present (Not Present)
[2020-12-24] MEDS ORDERED: Vancomycin 2,000 MG/520 ML IV.SOLN IVPB SCH (09:00)
[2020-12-24] MEDS: Vancomycin 1,750 MG/517.5 ML IV.SOLN IVPB SCH (18:49)
[2020-12-24] MEDS: tiZANidine 4 MG TABLET PO PRN (19:43)
[2020-12-24] MEDS: Mirtazapine 15 MG TABLET PO SCH (20:19)
[2020-12-25 02:57] LABS: Basophils # 0.1 K/mcL (0.0-0.2); Basophils % 0.5 %; Eosinophils # 0.5 K/mcL (0.0-0.6); Eosinophils % 4.4 %; Hematocrit 34.3 % (37.5-50.1); Immature Granulocytes % 0.5 % (0-4); Lymphocytes # 2.1 K/mcL (0.6-4.6); Lymphocytes % 19.1 %; Mean Corpuscular HGB Conc 32.1 g/dL (31.6-35.5); Mean Corpuscular Hemoglobin 28.8 pg (28.0-33.3); Mean Corpuscular Volume 89.8 fL (83.0-100.0); Mean Platelet Volume 9.2 fL (9.4-12.4); Monocytes # 0.8 K/mcL (0.0-1.3); Monocytes % 7.6 %; Neutrophils # 7.5 K/mcL (1.6-8.9); Platelet Count 324 K/mcL (140-400); Red Blood Count 3.82 M/mcL (4.19-5.50); Red Cell Distribution Width 14.3 % (11.5-14.5); Segmented Neutrophils % 67.9 %; White Blood Count 11.1 K/mcL (4.3-11.1)
[2020-12-25 03:14] LABS: BUN/Creatinine Ratio 10 (6-26); Blood Urea Nitrogen 6 mg/dL (6-20); Calcium 8.5 mg/dL (8.6-10.3); Carbon Dioxide 29 mEq/L (23-29); Chloride 99 mEq/L (98-107); Glucose 145 mg/dL (70-105); Osmolality,Calculated 276 (280-300); Potassium 4.2 mEq/L (3.5-5.1); Sodium 133 mEq/L (136-145); eGFR For African Americans > 60 (> 60); eGFR For Non-African Americans > 60 (> 60)
[2020-12-25] MEDS: *HR* OxyCODONE/APAP 7.5/325 TABLET PO PRN ×2 (04:06→08:17)
[2020-12-25] MEDS: *HR* Heparin 5,000 UNIT/ML VIAL SQ SCH (05:19)
[2020-12-25 07:33] VITALS: BP 159/80; PULSE 95; TEMP 97.8; O2SAT 91
[2020-12-25] MEDS: Insulin LISPRO 300 UNITS/3 ML VIAL SUBQ SCH (08:13)
[2020-12-25] MEDS: Gabapentin 400 MG CAPSULE PO SCH (08:17)
[2020-12-25] MEDS: Aspirin Enteric Coated 81 MG Tablet PO SCH (08:18)
[2020-12-25] MEDS: Piperacillin/Tazobactam 3.375 GM in 0.9 % Sodium Chloride Mini Bag 100 ML IVPB SCH (08:18)
[2020-12-25] MEDS: CarBAMazepine XR (12 hr) 100 MG TAB PO SCH (08:18)
[2020-12-25] MEDS: amLODIPine 5 MG TABLET PO SCH (08:18)
[2020-12-25] MEDS: Metoprolol XL (24 HR) Succ 50 MG TAB.ER.24H PO SCH (08:18)
== END 2020-12-25 10:30 | disposition home or self-care (01) | DRG 638 ==
LOC: 3ANU 12:05 → EMEROOARM 12:05 → SUATTDRO 20:20 → 3ANU 21:19
PROVIDERS: ADMIT Student in an Organized Health Care Education/Training Program; ATTEND Family Medicine